=== PATIENT | female | born 1945 | race Caucasian/White ===

== ENCOUNTER 2017-04-22 03:55 | Inpatient (IN) | payer MEDICARE, MEDICAID ==
[~2017-04-22] VITALS: Ht 167.6 cm; Wt 65.0 kg
[2017-04-22] MEDS ORDERED: LORAZEPAM 2 MG INJ IV PRN (04:30)
[2017-04-22 04:49] LABS: BASOPHILS % 0.3 % (0.0-2.0); EOSINOPHILS # 0.2 10^3/ul (0.0-0.5); EOSINOPHILS % 1.5 % (0.0-7.0); HEMATOCRIT 42.7 % (37.0-47.0); HEMOGLOBIN 13.7 g/dl (12.0-16.0); LYMPHOCYTES # 1.8 10^3/ul (0.8-2.9); LYMPHOCYTES % 11.3 % (15.0-51.0); MEAN CORPUSCULAR HEMOGLOBIN 29.2 pg (29.0-33.0); MEAN CORPUSCULAR HGB CONC 32.1 g/dl (32.0-37.0); MEAN PLATELET VOLUME 10.6 fl (7.4-10.4); MONOCYTE # 0.8 10^3/ul (0.3-0.9); NEUTROPHIL # 12.5 10^3/ul (1.6-7.5); NEUTROPHILS % 81.1 % (39.0-77.0); PLATELET COUNT 332 10^3/UL (140-415); RED BLOOD COUNT 4.69 10^6/ul (4.20-5.40); RED CELL DISTRIBUTION WIDTH 14.8 % (11.5-14.5); WHITE BLOOD COUNT 15.5 10^3/ul (4.8-10.8)
[2017-04-22] MEDS ORDERED: SOD CHLORIDE 0.9% 1,000 ML IV ONE (05:00)
[2017-04-22 05:17] LABS: ALANINE AMINOTRANSFERASE 27 IU/L (13-69); ALBUMIN 2.9 g/dl (3.3-4.9); ALBUMIN/GLOBULIN RATIO 0.82; ALKALINE PHOSPHATASE 106 IU/L (42-121); ANION GAP 20 (8-16); ASPARTATE AMINO TRANSFERASE 27 IU/L (15-46); BILIRUBIN,INDIRECT 0.2 mg/dl (0-1.1); BILIRUBIN,TOTAL 0.2 mg/dl (0.2-1.3); BLOOD UREA NITROGEN 11 mg/dl (7-20); CALCIUM 8.8 mg/dl (8.4-10.2); CARBON DIOXIDE 16 mmol/L (21-31); CHLORIDE 101 mmol/L (97-110); CREATININE 0.63 mg/dl (0.44-1.00); GLUCOSE 272 mg/dl (70-220); POTASSIUM 3.6 mmol/L (3.5-5.1); SODIUM 133 mmol/L (135-144); TOTAL PROTEIN 6.4 g/dl (6.1-8.1)
--- NOTE | 2017-04-22 05:32 | RADRPT ---
PROCEDURE: CT BRAIN WITHOUT CONTRAST CLINICAL INDICATION: 72-year-old female with altered mental status. TECHNIQUE: The study was performed utilizing [employer] VCT 64-slice CT scanner. Direct axial sections were obtained from the foramen magnum to the vertex without the use of intravenous contrast material. Sagittal and coronal reformations were obtained. Sagittal and coronal reformations were obtained. One or more the following dose reduction techniques were utilized: automated exposure cont rol, adjustment of the mA and/or kV according to patient's size and/or use of iterative reconstructi on technique. DICOM images are available. The images were viewed on a PACS workstation. CTD/vol = 45.0 mGy; Total Exam DLP = 720.2 mGy-cm. COMPARISON: None. FINDINGS: There is moderate degree of diffuse cortical and central atrophy with compensatory ventricular enlar gement. There is no evidence for mass effect or midline shift. There are periventricular and deep white matter areas of decreased density consistent with microangiopathic ischemic changes. There is encephalomalacia superior to the calcarine fissure involving the cuneus of the occipital lobe exten ding to the parieto-occipital sulcus region consistent with a prior infarct.. There is no evidence f or acute intra or extra-axial blood. Calcifications are seen within the intracranial carotid arterie s bilaterally. The bony calvarium is intact. The paranasal sinuses are without significant soft tiss ue. No air-fluid levels are noted. There is marked soft tissue within the mastoid air cells bilatera lly extending into the middle ear more severe on the right side. IMPRESSION: 1. Moderate diffuse atrophy. 2. Microangiopathic ischemic changes. 3. Right superior occipital encephalomalacia most consistent with a prior infarct. 4. Vascular calcifications. 5. 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 .Gunnar Jain MD, MD Date Time Electronically viewed and signed by .Gunnar Jain MD, on 04/22/2017 05:32 .M/
--- NOTE | 2017-04-22 05:32 | ERD ---
ER Documentation Chief Complaint Chief Complaint HPI This is a 72-year-old female patient brought here from group home facility with complaints of possible seizure. Encouraged to days ago. Usually, patient has been more altered than normal. Normally patient is alert and oriented but is now lethargic. Patient is a 6 trach to vent patient is chronically. ROS All systems reviewed and are negative except as per history of present illness. Allergies Allergies: Coded Allergies: Penicillins (Verified Allergy, Unknown, 10/19/16) ampicillin (Verified Allergy, Unknown, 10/19/16) codeine (Verified Allergy, Unknown, 10/19/16) PMhx/Soc Medical and Surgical Hx: pt denies Surgical Hx History of Surgery: No Anesthesia Reaction: No Hx Neurological Disorder: Yes (encephalopathy) Hx Respiratory Disorders: Yes (respiratory failure with trach) Hx Cardiac Disorders: Yes (high cholesterol) Hx Psychiatric Problems: No Hx Miscellaneous Medical Probl: Yes (dm) Hx Alcohol Use: No Hx Substance Use: No Hx Tobacco Use: No Smoking Status: Never smoker Physical Exam Vitals Vital Signs Date Time Temp Pulse Resp B/P Pulse Ox O2 Delivery O2 Flow Rate FiO2 04/22/17 04:21 15 04/22/17 04:15 123 14 100 60 04/22/17 03:55 97.5 126 14 140/91 100 Physical Exam Const: [] Head: Atraumatic Eyes: Normal Conjunctiva ENT: Normal External Ears, Nose and Mouth. Neck: Full range of motion..~ No meningismus. Resp: Clear to auscultation bilaterally Cardio: Regular rate and rhythm, no murmurs Abd: Soft, non tender, non distended. Normal bowel sounds Skin: No petechiae or rashes Back: No midline or flank tenderness Ext: No cyanosis, or edema Neur: Awake and alert Psych: Normal Mood and Affect Result Diagram: 04/22/17 0430 Results 24 hrs Laboratory Tests Test 04/22/17 04:30 White Blood Count 15.510^3/ul Red Blood Count 4.6910^6/ul Hemoglobin 13.7g/dl Hematocrit 42.7% Mean Corpuscular Volume 91.0fl Mean Corpuscular Hemoglobin 29.2pg Mean Corpuscular Hemoglobin Concent 32.1g/dl Red Cell Distribution Width 14.8% Platelet Count 84128^3/UL Mean Platelet Volume 10.6fl Neutrophils % 81.1% Lymphocytes % 11.3% Monocytes % 5.0% Eosinophils % 1.5% Basophils % 0.3% Nucleated Red Blood Cells % 0.0/100WBC Neutrophils # 12.510^3/ul Lymphocytes # 1.810^3/ul Monocytes # 0.810^3/ul Eosinophils # 0.210^3/ul Basophils # 0.010^3/ul Nucleated Red Blood Cells # 0.010^3/ul Current Medications Medications (Trade) Dose Ordered Sig/Emmanuelle Route PRN Reason Start Time Stop Time Status Last Admin Dose Admin Lorazepam 0.5 mg 0.5 mg ONCE PRN IV SEIZURES 04/22/17 04:30 04/22/17 06:00 Sodium Chloride (NS) 1,000 ml @ 1,000 mls/hr Q1H ONCE IV 04/22/17 05:00 04/22/17 05:59 Procedures/MDM EKG: Rate/Rhythm: [Normal Sinus Rhythm] QRS, ST, T-waves: [No changes consistent w/ acute ischemia] Impression: [No evidence of ischemia or arrhythmia] Chest X-ray 1V Interpreted by me: Soft Tissue: No acute abnormalities Bones: No acute abnormalities Mediastinum/Cardiac Silhouette/Lungs: [No acute abnormalities] Medical decision-makin-year-old female with looks to be acute alteration in mental status. No evidence of brain bleed. Will be admitted to hospitalist for further evaluation and management. Departure Diagnosis: Primary Impression: Seizure disorder Condition: Stable MONICA RIDDLE Apr 22, 2017 05:32
[2017-04-22 05:34] LABS: ACETAMINOPHEN < 10.0 ug/ml (10.0-30.0); ETHANOL < 10.0 mg/dl; SALICYLATE < 1.0 mg/dl (5.0-30.0)
[2017-04-22 06:04] LABS: AADO2 Arterial 151.4 mmHg (7.0-24.0); Allen Test ACCEPTAB; Arterial Base Excess -8.7 mmol/L (-3.0-3); Arterial COHb 0.2 % (0.0-3.0); Arterial Fraction of Oxyhgb 98.8 % (93.0-99.0); Arterial HCO3 17.5 mmol/L (22.0-26.0); Arterial MetHb 0.1 % (0.0-1.5); Arterial Total Hemglobin 13.1 g/dl (12.0-18.0); MODE VENT - AC
[2017-04-22 06:48] LABS: ADD UMIC YES; UR ASCORBIC ACID 40 mg/dL (NEGATIVE); UR BILIRUBIN (Dip) NEGATIVE (NEGATIVE); UR BLOOD (Dip) NEGATIVE (NEGATIVE); UR CLARITY TURBID (CLEAR); UR COLOR AMBER (YELLOW); UR GLUCOSE (Dip) 3+ mg/dL (NEGATIVE); UR KETONES (Dip) TRACE mg/dL (NEGATIVE); UR LEUKOCYTE ESTERASE (Dip) 2+ Leu/ul (NEGATIVE); UR NITRITE (Dip) NEGATIVE (NEGATIVE); UR RBC 0 /HPF (0-5); UR SPECIFIC GRAVITY (Dip) 1.021 (1.003-1.030); UR TOTAL PROTEIN (Dip) 2+ mg/dl (NEGATIVE); UR UROBILINOGEN (Dip) 1+ mg/dL (NEGATIVE)
--- NOTE | 2017-04-22 07:06 | RADRPT ---
PROCEDURE: XR Chest. CLINICAL INDICATION: Seizure TECHNIQUE: AP Portable chest. COMPARISON: CHEST 11/07/2016; CHEST 10/29/2016 FINDINGS: Tracheostomy tube is midline. The patient is rotated. The cardiomediastinal silhouette is magnified. The aortic arch is calcified. There is interval devel opment of diffuse bilateral reticular nodular densities. The left hemidiaphragm is elevated with adj acent atelectasis. There is small left pleural effusion or thickening. No pneumothorax is seen. Th ere are degenerative changes in the spine. The bones are demineralized. IMPRESSION: Tracheostomy tube in place. Interval development of diffuse bilateral interstitial infiltrates and/or edema. Left basilar atelectasis and trace pleural effusion or thickening. Aortic atherosclerosis. Physician Yasmin Date Time Electronically viewed and signed by Ebony Vanegas Physician on 04/22/2017 07:05 /
[2017-04-22] MEDS ORDERED: ACID1TAB15 G-TUBE (07:16)
[2017-04-22] MEDS ORDERED: ATOR40TA68 GTB (07:28)
[2017-04-22] MEDS ORDERED: IPRA3AMP INHALATION (07:28)
[2017-04-22] MEDS ORDERED: ASPI-664 GTB (07:28)
[2017-04-22] MEDS ORDERED: CHLO473M4 MM (07:30)
[2017-04-22] MEDS ORDERED: DOCU-144 GTB (07:31)
[2017-04-22] MEDS ORDERED: BISA10SU75 PR (07:33)
[2017-04-22] MEDS ORDERED: FAMO20TA18 GTB (07:34)
[2017-04-22] MEDS ORDERED: FERR220S2 GTB (07:35)
[2017-04-22] MEDS ORDERED: NA P133E39 RC (07:36)
[2017-04-22] MEDS ORDERED: IBUP400T22 GTB (07:37)
[2017-04-22] MEDS ORDERED: MAGN400T27 GTB (07:38)
[2017-04-22] MEDS ORDERED: MAGN400O4 GTB (07:38)
[2017-04-22] MEDS ORDERED: ACET-2047 GTB ×3 (07:40→07:46)
[2017-04-22] MEDS ORDERED: ACET-141 GTB (07:44)
[2017-04-22] MEDS ORDERED: CRAN3875 GTB (07:47)
[2017-04-22] MEDS ORDERED: ASC500 GTB (07:50)
[2017-04-22 07:59] LABS: BARBITURATES Negative (NEGATIVE); BENZODIAZEPINES Negative (NEGATIVE); CANNABINOIDS Negative (NEGATIVE); COCAINE Negative (NEGATIVE); OPIATES Negative (NEGATIVE)
--- NOTE | 2017-04-22 10:24 | QN ---
Documentation Comment Observation Note: Time: 4 hours Family Hx: Negative for diabetes Evaluation: Multiple exams showed improving symptoms and no evidence of clinical decompensation. ILYA LARA MD Apr 22, 2017 10:24
--- NOTE | 2017-04-22 11:48 | HP ---
Date/Time of Note Date/Time of Note DATE: 04/22/17 TIME: 11:31 Assessment/Plan VTE Prophylaxis VTE Prophylaxis Intervention: SCD's Lines/Catheters Urinary Cath still in place: No Assessment/Plan Assessment/Plan 72 yo F 1. Sepsis 2/2 UTI + PNA 2. Acute on Xic resp failure: chronic vent dependent, s/p trach 3. prev CVA 4. ALOC 2/2 #1 5. Metabolic acidosis 6. Single seizure episode likely 2/2 #1 PLAN: admit ICU empiric broad spectrum abx ID and Pulm consults serial labs / corona cultures / supportive care possible neurology review if seizures persist / seizure precautions / EEG No feeds for now, continue meds however and all other care Further interventions per clinical care. HPI/ROS Admit Date/Time Admit Date/Time 04/22/17 Hx of Present Illness 72-year-old female who was brought in from a [facility] facility because of alteration in her mental status. Said to have had a seizure episode after which she became unresponsive. The patient is chronically ventilated via tracheostomy, but apparently from reports she is usually alert and oriented and follows commands. No hx of prior seizures. Per EMS patient was completely unresponsive when they arrived and had a blood sugar of 225. ABG in ER showed metabolic acidosis. She is also tachycardic. Per emergency room report, there was also some concern for possible seizure episode. CXR and urinalysis in ER is suggestive of infection. 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 ROS Subjective hx not possible: pt non-verbal, pt critical status, other ( unrsponsive) PMH/Family/Social Past Medical History * chronic resp failure via trach * Prev CVA Past Surgical History * Tracheostomy * PEG tube placement Family History Significant Family History: other (unknown) Social History Smoking Status: Never smoker Exam/Review of Systems Vital Signs Vitals VS - Last 72 Hours, by Label Date Time Temp Pulse Resp B/P Pulse Ox O2 Delivery O2 Flow Rate FiO2 04/22/17 09:05 108 14 100 40 04/22/17 08:30 101 14 120/87 100 Mechanical Ventilator 15.0 Trach Collar 04/22/17 07:25 110 14 100 40 04/22/17 06:30 97.0 112 14 119/90 100 Mechanical Ventilator Trach Collar 04/22/17 06:07 112 14 100 40 04/22/17 05:51 97.8 115 103/77 100 Mechanical Ventilator 15.0 04/22/17 04:21 15 04/22/17 04:18 50 04/22/17 04:15 123 14 100 60 04/22/17 03:55 97.5 126 14 140/91 100 Vital Signs Date Time Temp Pulse Resp B/P Pulse Ox O2 Delivery O2 Flow Rate FiO2 04/22/17 09:05 108 14 100 40 04/22/17 08:30 120/87 Mechanical Ventilator 15.0 Trach Collar 04/22/17 06:30 97.0 Exam Constitutional: other (obtunded), No alert, No non-verbal Psych: other (unable to assess) Head: atraumatic, normocephalic Eyes: PERRL ENMT: No mucosa pink and moist Neck: other (trach to vent) Respiratory: crackles/rales (coarse), diminished breath sounds, No labored breathing Cardiovascular: regular rate and rhythm, No murmurs/extra sounds Gastrointestinal: bowel sounds, other (PEG), soft Extremities: edema (mild) Neurological: other (obtunded and will only grimace to pain) Labs Result Diagram: 04/22/17 0430 04/22/17 0430 Procedures Procedures Laboratory Tests Test 04/22/17 04:12 04/22/17 04:30 04/22/17 04:33 04/22/17 05:44 Blood Gas Specimen Source Blood arterial Arterial Blood Date Drawn 04/22/2017 5:50:40 AM Arterial Blood pH (Temp corrected) 7.272 Arterial Blood pCO2 (Temp correct) 38.9mmhg Arterial Blood pO2 (Temp corrected) 161.3mmHG Arterial Blood HCO3 17.5mmol/L Arterial Blood Base Excess -8.7mmol/L Arterial Blood Oxygen Saturation 99.1mmHG Kaveh Test ACCEPTAB Arterial Blood Gas Puncture Site Right Radial Arterial Blood Carboxyhemoglobin 0.2% Arterial Blood Methemoglobin 0.1% Blood Gas A-a O2 Differential 151.4mmHg Oxyhemoglobin Percent 98.8% Total Hemoglobin 13.1g/dl Blood Gas Temperature 37.0C Blood Gas Respiration Rate 14.0 Blood Gas Actual Respiration Rate 14 Blood Gas Modality VENT - AC FiO2 50.0% Blood Gas Tidal Volume 500.0mL Blood Gas Low PEEP Setting 5.0cmH2O Blood Gas Inspiratory Pressure 20.0 Blood Gas Critical Value Read Back MICHAEL ARAYA Blood Gas Notified Whom AA Blood Gas Notified Time 04/22/2017 6:04:23 AM White Blood Count 15.510^3/ul Red Blood Count 4.6910^6/ul Hemoglobin 13.7g/dl Hematocrit 42.7% Mean Corpuscular Volume 91.0fl Mean Corpuscular Hemoglobin 29.2pg Mean Corpuscular Hemoglobin Concent 32.1g/dl Red Cell Distribution Width 14.8% Platelet Count 83887^3/UL Mean Platelet Volume 10.6fl Neutrophils % 81.1% Lymphocytes % 11.3% Monocytes % 5.0% Eosinophils % 1.5% Basophils % 0.3% Nucleated Red Blood Cells % 0.0/100WBC Neutrophils # 12.510^3/ul Lymphocytes # 1.810^3/ul Monocytes # 0.810^3/ul Eosinophils # 0.210^3/ul Basophils # 0.010^3/ul Nucleated Red Blood Cells # 0.010^3/ul Sodium Level 133mmol/L Potassium Level 3.6mmol/L Chloride Level 101mmol/L Carbon Dioxide Level 16mmol/L Anion Gap 20 Blood Urea Nitrogen 11mg/dl Creatinine 0.63mg/dl Glucose Level 272mg/dl Calcium Level 8.8mg/dl Total Bilirubin 0.2mg/dl Direct Bilirubin 0.00mg/dl Indirect Bilirubin 0.2mg/dl Aspartate Amino Transf (AST/SGOT) 27IU/L Alanine Aminotransferase (ALT/SGPT) 27IU/L Alkaline Phosphatase 106IU/L Total Protein 6.4g/dl Albumin 2.9g/dl Globulin 3.50g/dl Albumin/Globulin Ratio 0.82 Salicylates Level < 1.0mg/dl Acetaminophen Level < 10.0ug/ml Ethyl Alcohol Level < 10.0mg/dl Troponin I 0.068ng/ml Urine Color LARISA Urine Clarity TURBID Urine pH 5.0 Urine Specific [place] 1.021 Urine Ketones TRACEmg/dL Urine Nitrite NEGATIVEmg/dL Urine Bilirubin NEGATIVEmg/dL Urine Urobilinogen 1+mg/dL Urine Leukocyte Esterase 2+Norma/ul Urine Microscopic RBC 0/HPF Urine Microscopic WBC 0/HPF Urine Hemoglobin NEGATIVEmg/dL Urine Glucose 3+mg/dL Urine Total Protein 2+mg/dl Urine Opiates Screen Negative Urine Barbiturates Negative Urine Amphetamines Screen Negative Urine Benzodiazepines Screen Negative Urine Cocaine Screen Negative Urine Cannabinoids Negative Current Medications Medications (Trade) Dose Ordered Sig/Emmanuelle Route PRN Reason Start Time Stop Time Status Last Admin Dose Admin Lorazepam 0.5 mg 0.5 mg ONCE PRN IV SEIZURES 04/22/17 04:30 04/22/17 06:00 DC Sodium Chloride (NS) 1,000 ml @ 1,000 mls/hr Q1H ONCE IV 04/22/17 05:00 04/22/17 05:59 DC 04/22/17 05:49 1,000 MLS/HR PROCEDURE: CT BRAIN WITHOUT CONTRAST CLINICAL INDICATION: 72-year-old female with altered mental status. TECHNIQUE: The study was performed utilizing [employer]T 64-slice CT scanner. Direct axial sections were obtained from the foramen magnum to the vertex without the use of intravenous contrast material. Sagittal and coronal reformations were obtained. Sagittal and coronal reformations were obtained. One or more the following dose reduction techniques were utilized: automated exposure control, adjustment of the mA and/or kV according to patient's size and /or use of iterative reconstruction technique. DICOM images are available. The images were viewed on a PACS workstation. CTD/vol = 45.0 mGy; Total Exam DLP = 720.2 mGy-cm. COMPARISON: None. FINDINGS: There is moderate degree of diffuse cortical and central atrophy with compensatory ventricular enlargement. There is no evidence for mass effect or midline shift. There are periventricular and deep white matter areas of decreased density consistent with microangiopathic ischemic changes. There is encephalomalacia superior to the calcarine fissure involving the cuneus of the occipital lobe extending to the parieto-occipital sulcus region consistent with a prior infarct.. There is no evidence for acute intra or extra-axial blood. Calcifications are seen within the intracranial carotid arteries bilaterally. The bony calvarium is intact. The paranasal sinuses are without significant soft tissue. No air-fluid levels are noted. There is marked soft tissue within the mastoid air cells bilaterally extending into the middle ear more severe on the right side. IMPRESSION: 1. Moderate diffuse atrophy. 2. Microangiopathic ischemic changes. 3. Right superior occipital encephalomalacia most consistent with a prior infarct. 4. Vascular calcifications. 5. 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 .Gunnar Jain MD, MD Date Time Electronically viewed and signed by .Gunnar Jain MD, on 04/22/2017 05:32 .M/ CC: MONICA RIDDLE PROCEDURE: XR Chest. CLINICAL INDICATION: Seizure TECHNIQUE: AP Portable chest. COMPARISON: CHEST 11/07/2016; CHEST 10/29/2016 FINDINGS: Tracheostomy tube is midline. The patient is rotated. The cardiomediastinal silhouette is magnified. The aortic arch is calcified. There is interval development of diffuse bilateral reticular nodular densities. The left hemidiaphragm is elevated with adjacent atelectasis. There is small left pleural effusion or thickening. No pneumothorax is seen. There are degenerative changes in the spine. The bones are demineralized. IMPRESSION: Tracheostomy tube in place. Interval development of diffuse bilateral interstitial infiltrates and/or edema. Left basilar atelectasis and trace pleural effusion or thickening. Aortic atherosclerosis. Ebony Vanegas, Physician Date Time Electronically viewed and signed by Ebony Vanegas, Physician on 04/22/2017 07: 05 CS/ CC: MONICA RIDDLE BOLATITO M. Apr 22, 2017 11:42
[2017-04-22] MEDS ORDERED: VANCOMYCIN IV PER PHARMACY XX SCH (12:00)
[2017-04-22] MEDS ORDERED: VANCOMYCIN 1 GM in SOD CHLORIDE 0.9% 250 ML IVPB ONE (12:00)
[2017-04-22] MEDS ORDERED: LEVETIRACETAM 1000 MG (PMX) 100 ML IVPB ONE ×2 (12:30→13:30)
--- NOTE | 2017-04-22 12:54 | RADRPT ---
PROCEDURE: Ultrasound of the bilateral lower extremity venous system. CLINICAL INDICATION: Bilateral leg pain and swelling, deep venous thrombosis TECHNIQUE: Jasso scale with and without compression, color doppler, spectral doppler of the venous system of the bilateral lower extremities was performed. Venous augmentation maneuvers were utilized . COMPARISON: No prior studies are available for comparison. FINDINGS: Right: Common femoral vein: Patent. Femoral vein: Patent. Popliteal vein: Patent. Calf veins: Patent. No soft tissue abnormalities are identified. Left: Common femoral vein: Patent. Femoral vein: Patent. Popliteal vein: Patent. Calf veins: Patent. No soft tissue abnormalities are identified. IMPRESSION: No evidence of a deep vein thrombosis within the bilateral lower extremities. RPTAT: AADD .Sherman Souza MD, MD Date Time Electronically viewed and signed by .Sherman Souza MD, on 04/22/2017 12:54 .B/
[2017-04-22] MEDS ORDERED: AZTREONAM 1 GM/NS (PMX) 50 ML IVPB ONE (13:00)
--- NOTE | 2017-04-22 13:05 | CONS ---
DATE OF ADMISSION: 04/22/2017 DATE OF CONSULTATION: 04/22/2017 TYPE OF CONSULTATION: Infectious Disease. REASON FOR CONSULTATION: Antibiotic management. HISTORY OF PRESENT ILLNESS: Sandi Rothman is a 72-year-old female who was brought in from half-way facility with alteration of levels of consciousness. She had a seizure and became unrespons fran. She has ventilator-dependent respiratory failure but is usually alert and responsive. No hist ory of prior seizures. She has a history of MRSA in the past. She has a G-tube in place as well an d a history of previous CVA. On admission, her white count was 15.5, H and H of 13.7 and 42.7, plat elet count 332,000. BUN and creatinine 11/0.63, glucose random 272. PAST MEDICAL HISTORY: Operations as outlined. FAMILY HISTORY: Noncontributory. SOCIAL HISTORY: She does not smoke, drink or abuse drugs. ALLERGIES: NONE TO PENICILLIN, SULFA OR FOODS. MEDICATIONS: Per chart. REVIEW OF SYSTEMS: As per HPI. PHYSICAL EXAMINATION: GENERAL: The patient is an elderly appearing female who is obtunded on a respirator. She has a tra ch and a PEG. SKIN: Without generalized rash. HEENT: Within normal limits. NECK: Tracheostomy in place. Neck is supple. LYMPH NODES: None palpable. CHEST: Decreased breath sounds at the bases. HEART: Without murmur or gallop. ABDOMEN: Soft, nontender, without organosplenomegaly or masses. EXTREMITIES: Without cyanosis, clubbing, or edema. RECTAL AND GENITAL: Deferred. NEUROLOGIC: She has weakness bilaterally. IMPRESSION AND PLAN: The patient comes in now with leukocytosis. She has development of diffuse bi lateral interstitial infiltrates and/or edema. Left basilar atelectasis. She was started on vancom ycin and Levaquin. Cultures are pending including blood, urine, C. diff, and respiratory cultures. I will dictate my findings to the hospitalist. Dictated By: MARGIE AMBRIZ MD, JD/MICHAEL Conf#: [id number] DID#: [id number]
[2017-04-22] MEDS: LEVOFLOXACIN 750MG/D5W (PMX) 150 ML IVPB SCH (13:15)
[2017-04-22 13:58] LABS: CK-MB 9.48 ng/ml (0.0-2.4)
[2017-04-22 14:28] LABS: TROPONIN-I 0.994 ng/ml (0.00-0.12)
[2017-04-22] MEDS ORDERED: ASPIRIN 81 MG TAB PO ONE (14:30)
--- NOTE | 2017-04-22 17:12 | CONS ---
DATE OF ADMISSION: 04/22/2017 DATE OF CONSULTATION: 04/22/2017 PULMONARY CRITICAL CARE CONSULTATION TIME: 12:15 p.m. REFERRING PHYSICIAN: Gregoria Babb MD REASON FOR REFERRAL: For evaluation of chronic respiratory failure and sepsis. HISTORY OF PRESENT ILLNESS: Ms. Matta is a 72-year-old white female who was transferred over t o ER from longterm with episode of seizure which apparently is new in onset. The patient was un responsive initially; however, after resuscitation, the patient became more responsive, and by the t khoi I saw the patient in the ER, the patient was completely awake and alert and was doing fairly wel l on invasive mechanical ventilation. History was obtained from medical records. PAST MEDICAL HISTORY: 1. Chronic respiratory failure which is ventilator dependent. 2. Status post tracheostomy and G-tube placement. 3. No prior history of seizure activity. 4. History of cerebrovascular accident. MEDICATIONS: Patient currently on intravenous Levaquin, 750 mg was given x1. Vancomycin was given 1.25 gm x1, Lovenox 40 mg a day. Normal saline also was given 1000 mL x1 IV. ALLERGIES: 1. PENICILLIN. 2. CODEINE. SOCIAL HISTORY: No history of any smoking. FAMILY HISTORY: Noncontributory. OCCUPATIONAL HISTORY: Noncontributory. REVIEW OF SYSTEMS: A limited review of systems could be obtained. Patient denies any headache, vis ual changes, chest pain, shortness of breath, abdominal pain, nausea, vomiting, fever, chills. PHYSICAL EXAMINATION: GENERAL: Elderly woman on ventilator via tracheostomy, currently in no distress, awake and alert. VITAL SIGNS: Temperature is 97 degrees Fahrenheit, pulse 100 per minute, blood pressure is 120/84, O2 saturation 100%, respiratory rate is 14 per minute. Current ventilator settings are AC of 14, ti brenna volume 500, PEEP of 5, 40% FIO2. HEENT: Supple neck, no JVD, no lymphadenopathy, midline trachea, no thyromegaly. Patient is edentu lous. Tracheostomy in place. Insertion site is clean. Pupils are small bilaterally. CHEST: Diminished breath sounds bilaterally. HEART: S1, S2 audible. No murmurs, regular rhythm. ABDOMEN: Soft, nondistended, no organomegaly. G-tube in place. Bowel sounds audible. EXTREMITIES: No edema. NEUROLOGIC: Patient is awake and follows simple commands, moves all 4 extremities. LABORATORY DATA: Today, ABG done on current ventilator settings AC of 14, tidal volume 500, PEEP of 5, 50% FIO2, pH 7.27, CO2 of 38, pO2 of 161. Sodium 133, potassium 3.6, chloride 101, bicarb 16, B UN 11, creatinine 0.6, glucose 272. AST of 27, AST of 27. White count 15.5, hemoglobin 13.7, plate let count of 332. IMAGING: Chest x-ray was reviewed, which is showing bilateral infiltrative changes. CT brain also was done which is showing diffuse atrophy with microangiopathic changes. No acute changes identifie d. ASSESSMENT AND RECOMMENDATIONS: 1. The patient admitted with seizures, new in onset, etiology is unclear. 2. History of chronic respiratory failure. 3. Bilateral pneumonia, possibly some element of aspiration. RECOMMENDATIONS: Add Azactam 1 gm IV q.8 hours. Continue current other antibiotics and supportive measures. Administer Keppra 1 gm with a followup of 500 mg q.12 hours. Add Protonix for GI prophyl axis. Dictated By: CRISELDA EDWARD MD AQ/NTS Conf#: [id number] DID#: [id number] CC: GREGORIA BABB MD;*EndCC*
[2017-04-22 18:42] LABS: CK-MB 11.3 ng/ml (0.0-2.4)
[2017-04-22 18:43] LABS: TROPONIN-I 1.21 ng/ml (0.00-0.12)
[2017-04-22 21:10] LABS: CALCIUM 8.5 mg/dl (8.4-10.2); CREATININE 0.61 mg/dl (0.44-1.00); POTASSIUM 3.9 mmol/L (3.5-5.1)
[2017-04-23] VITALS (26 sets, daily range): BP systolic 88–119; BP diastolic 58–86; PULSE 93–108; RESP 14–30; TEMP 99.9; Ht 167.6 cm; Wt 65.0 kg
[2017-04-23 06:19] LABS: BASOPHILS % 0.1 % (0.0-2.0); HEMATOCRIT 42.8 % (37.0-47.0); HEMOGLOBIN 14.4 g/dl (12.0-16.0); LYMPHOCYTES # 0.9 10^3/ul (0.8-2.9); LYMPHOCYTES % 4.4 % (15.0-51.0); MEAN CORPUSCULAR HEMOGLOBIN 29.3 pg (29.0-33.0); MEAN CORPUSCULAR HGB CONC 33.6 g/dl (32.0-37.0); MEAN CORPUSCULAR VOLUME 87.2 fl (82.0-101.0); MEAN PLATELET VOLUME 11.2 fl (7.4-10.4); MONOCYTE # 1.2 10^3/ul (0.3-0.9); MONOCYTES % 5.8 % (0.0-11.0); NEUTROPHIL # 18.2 10^3/ul (1.6-7.5); PLATELET COUNT 302 10^3/UL (140-415); RED BLOOD COUNT 4.91 10^6/ul (4.20-5.40); RED CELL DISTRIBUTION WIDTH 14.9 % (11.5-14.5); WHITE BLOOD COUNT 20.5 10^3/ul (4.8-10.8)
[2017-04-23 06:55] LABS: ALBUMIN 3.3 g/dl (3.3-4.9); BILIRUBIN,INDIRECT 0.2 mg/dl (0-1.1); BILIRUBIN,TOTAL 0.2 mg/dl (0.2-1.3); CALCIUM 9.1 mg/dl (8.4-10.2); CREATININE 0.7 mg/dl (0.44-1.00); POTASSIUM 3.6 mmol/L (3.5-5.1); TOTAL PROTEIN 7.5 g/dl (6.1-8.1)
[2017-04-23] MEDS ORDERED: ENOXAPARIN 40 MG/0.4 ML SYG SC SCH (09:00)
--- NOTE | 2017-04-23 09:15 | PN ---
Date/Time of Note Date/Time of Note DATE: 04/23/17 TIME: 09:15 Assessment/Plan VTE Prophylaxis VTE Prophylaxis Intervention: SCD's Lines/Catheters IV Catheter Type (from Nrs): Saline Lock Urinary Cath still in place: Yes Reason Cath still needed: urinary retention Assessment/Plan Assessment/Plan 1. Sepsis secondary to UTI and pneumonia - Patient remains afebrile but WBC trending up - corona cultures pending - Currently on IV Azactam, Vancomycin, and Levaquin - ID on board and recommendations appreciated. - Pulmonology on board and recommendations appreciated - Continue to monitor 2. Elevated troponins - Possibly secondary to sepsis - Will put on full dose Lovenox and consult cardiology. 3. Acute on chronic resp failure- vent dependent, s/p trach - Continue current management - Pulm on board 4. Seizure episode - Currently on Keppra - EEG ordered - no further episodes of seizures since admission 5. Metabolic acidosis - repeat ABG pending - bicarb normalized 6. hyponatremia- resolved - continue monitoring 7. Diet - will resume feeding in next 24 hours 8. Disposition - Continue monitoring in ICU >35 minutes of critical care time was spent with patient. Subjective 24 Hr Interval Summary Free Text/Dictation Patient resting comfortably in bed in no acute distress. opens eyes to voice and touch but not following commands. Does track with eyes. No acute overnight events. No further seizure episodes. Exam/Review of Systems Vital Signs Vitals Vital Signs Date Time Temp Pulse Resp B/P Pulse Ox O2 Delivery O2 Flow Rate FiO2 04/23/17 08:00 100.6 93 15 105/69 98 04/23/17 06:30 Mechanical Ventilator 04/23/17 06:30 40 04/22/17 19:43 Intake and Output 04/22/17 04/22/17 04/23/17 15:00 23:00 07:00 Intake Total 150 ml Balance 150 ml Exam Constitutional: alert, non-verbal Head: atraumatic, normocephalic Eyes: EOMI, PERRL ENMT: other (dry mucous membrane ) Respiratory: diminished breath sounds, No crackles/rales, No labored breathing, No wheezing Cardiovascular: regular rate and rhythm, No edema, No murmurs/extra sounds, No systolic murmur Gastrointestinal: bowel sounds, non-tender, soft, No distended, No rebound or guarding Musculoskeletal: other, No swelling (clubbing right foot) Extremities: normal pulses Skin: No diaphoresis, No ecchymosis Lymph: nl lymph nodes Results Result Diagram: 04/23/1728 04/23/17 0528 Results 24 hrs Laboratory Tests Test 04/22/17 12:55 04/22/17 13:05 04/22/17 14:50 04/22/17 17:47 Hemoglobin A1c 5.8 Creatine Kinase 130 134 Creatine Kinase Index 7.3 8.4 Creatinine Kinase MB (Mass) 9.48 H 11.30 H Troponin I 0.994 *H 1.210 *H Magnesium Level 1.5 L Sodium Level 133 L Potassium Level 3.9 Chloride Level 103 Carbon Dioxide Level 16 L Anion Gap 18 H Blood Urea Nitrogen 17 Creatinine 0.61 Glucose Level 202 Calcium Level 8.5 Test 04/23/17 04:52 04/23/17 05:28 Bedside Glucose 190 White Blood Count 20.5 #H Red Blood Count 4.91 Hemoglobin 14.4 Hematocrit 42.8 Mean Corpuscular Volume 87.2 Mean Corpuscular Hemoglobin 29.3 Mean Corpuscular Hemoglobin Concent 33.6 Red Cell Distribution Width 14.9 H Platelet Count 302 Mean Platelet Volume 11.2 H Neutrophils % 89.0 H Lymphocytes % 4.4 L Monocytes % 5.8 Eosinophils % 0.0 Basophils % 0.1 Nucleated Red Blood Cells % 0.0 Neutrophils # 18.2 H Lymphocytes # 0.9 Monocytes # 1.2 H Eosinophils # 0.0 Basophils # 0.0 Nucleated Red Blood Cells # 0.0 Sodium Level 138 Potassium Level 3.6 Chloride Level 102 Carbon Dioxide Level 21 Anion Gap 19 H Blood Urea Nitrogen 19 Creatinine 0.70 Glucose Level 189 Calcium Level 9.1 Total Bilirubin 0.2 Direct Bilirubin 0.00 Indirect Bilirubin 0.2 Aspartate Amino Transf (AST/SGOT) 36 Alanine Aminotransferase (ALT/SGPT) 21 Alkaline Phosphatase 112 Total Protein 7.5 # Albumin 3.3 Medications Medications Current Medications Levofloxacin/ Dextrose (Levaquin 750 Mg/ D5W 150 ml (Pmx)) 150 ml @ 100 mls/hr Q24H IVPB Last administered on 04/22/17t 13:15; Admin Dose 100 MLS/HR; Start 04/22/17 at 12:00 Enoxaparin Sodium 40 mg 40 mg DAILY SC ; Start 04/23/17 at 09:00 Vancomycin HCl/ Sodium Chloride (Vancocin/NS) 250 ml @ 83.333 mls/ hr Q24H IVPB ; Start 04/23/17 at 12:00 YUDI CARBAJAL MD Apr 23, 2017 09:15
--- NOTE | 2017-04-23 09:56 | CONS ---
Date/Time of Note Date/Time of Note DATE: 04/23/17 TIME: 09:54 Assessment/Plan Assessment/Plan Additional Assessment/Plan Ventilator setting; AC of 14, tidal volume 450, PEEP of 5, 40% FiO2. Assessment and recommendations; 1. Patient with history of chronic respiratory failure admitted with bilateral pneumonia. Currently on appropriate antibiotic regimen. 2. New onset seizures without any further recurrence after being admitted to the hospital. Patient given 1 g of Keppra yesterday. Continue current treatment. Continue Azactam. Continue Keppra at 500 mg every 12 hours. Obtain follow-up chest x-ray in 24 hours. Obtain follow-up ABG as well. Consultation Date/Type/Reason Admit Date/Time Apr 22, 2017 at 05:39 Initial Consult Date Type of Consultation: Pulmonary/critical care 24 HR Interval Summary Free Text/Dictation Patient's condition is stable. Patient has remained hemodynamically stable. No overt seizure activity noted. General exam; elderly woman, on ventilator via tracheostomy, awake, currently in no distress. Exam/Review of Systems Vital Signs Vitals Vital Signs Date Time Temp Pulse Resp B/P Pulse Ox O2 Delivery O2 Flow Rate FiO2 04/23/17 08:00 100.6 93 15 105/69 98 04/23/17 08:00 40 04/23/17 06:30 Mechanical Ventilator 04/22/17 19:43 Intake and Output 04/22/17 04/22/17 04/23/17 15:00 23:00 07:00 Intake Total 150 ml Balance 150 ml Exam HEENT exam; supple neck, no JVD. No lymphadenopathy. Midline trachea. No thyromegaly. Tracheostomy in place. Insertion site is clean. Pupils are small bilaterally. Chest exam; diminished but clear breath sounds. S1-S2 audible, no murmurs. Regular rhythm. Abdomen exam; soft, nondistended. No organomegaly. G-tube in place. Bowel sounds audible. Extremity exam; no edema. MANAGER FLORAL exam; patient awake and follows simple commands and moves all 4 extremities. Results Result Diagram: 04/23/17 0528 04/23/17 0528 Results 24 hrs Laboratory Tests Test 04/22/17 12:55 04/22/17 13:05 04/22/17 14:50 04/22/17 17:47 Hemoglobin A1c 5.8 Creatine Kinase 130 134 Creatine Kinase Index 7.3 8.4 Creatinine Kinase MB (Mass) 9.48 H 11.30 H Troponin I 0.994 *H 1.210 *H Magnesium Level 1.5 L Sodium Level 133 L Potassium Level 3.9 Chloride Level 103 Carbon Dioxide Level 16 L Anion Gap 18 H Blood Urea Nitrogen 17 Creatinine 0.61 Glucose Level 202 Calcium Level 8.5 Test 04/23/17 04:52 04/23/17 05:28 Bedside Glucose 190 White Blood Count 20.5 #H Red Blood Count 4.91 Hemoglobin 14.4 Hematocrit 42.8 Mean Corpuscular Volume 87.2 Mean Corpuscular Hemoglobin 29.3 Mean Corpuscular Hemoglobin Concent 33.6 Red Cell Distribution Width 14.9 H Platelet Count 302 Mean Platelet Volume 11.2 H Neutrophils % 89.0 H Lymphocytes % 4.4 L Monocytes % 5.8 Eosinophils % 0.0 Basophils % 0.1 Nucleated Red Blood Cells % 0.0 Neutrophils # 18.2 H Lymphocytes # 0.9 Monocytes # 1.2 H Eosinophils # 0.0 Basophils # 0.0 Nucleated Red Blood Cells # 0.0 Sodium Level 138 Potassium Level 3.6 Chloride Level 102 Carbon Dioxide Level 21 Anion Gap 19 H Blood Urea Nitrogen 19 Creatinine 0.70 Glucose Level 189 Calcium Level 9.1 Total Bilirubin 0.2 Direct Bilirubin 0.00 Indirect Bilirubin 0.2 Aspartate Amino Transf (AST/SGOT) 36 Alanine Aminotransferase (ALT/SGPT) 21 Alkaline Phosphatase 112 Total Protein 7.5 # Albumin 3.3 Medications Medications Current Medications Levofloxacin/ Dextrose (Levaquin 750 Mg/ D5W 150 ml (Pmx)) 150 ml @ 100 mls/hr Q24H IVPB Last administered on 04/22/17t 13:15; Admin Dose 100 MLS/HR; Start 04/22/17 at 12:00 Enoxaparin Sodium 40 mg 40 mg DAILY SC ; Start 04/23/17 at 09:00 Vancomycin HCl/ Sodium Chloride (Vancocin/NS) 250 ml @ 83.333 mls/ hr Q24H IVPB ; Start 04/23/17 at 12:00 CRISELDA EDWARD Apr 23, 2017 09:56
[2017-04-23] MEDS: LEVETIRACETAM 500 MG (PMX) 100 ML IVPB SCH ×2 (10:00→20:50)
[2017-04-23] MEDS: AZTREONAM 1 GM/NS (PMX) 50 ML IVPB SCH ×2 (10:00→14:19)
[2017-04-23 10:50] LABS: AADO2 Arterial 157.1 mmHg (7.0-24.0); Allen Test ACCEPTAB; Arterial Base Excess -1.8 mmol/L (-3.0-3); Arterial COHb 0.5 % (0.0-3.0); Arterial Fraction of Oxyhgb 97.2 % (93.0-99.0); Arterial HCO3 20.9 mmol/L (22.0-26.0); Arterial MetHb 0.1 % (0.0-1.5); Arterial Total Hemglobin 14.8 g/dl (12.0-18.0); MODE VENT - AC
[2017-04-23] MEDS: LEVOFLOXACIN 750MG/D5W (PMX) 150 ML IVPB SCH (12:00)
[2017-04-23 13:10] LABS: CK-MB 7.09 ng/ml (0.0-2.4)
[2017-04-23 13:14] LABS: TROPONIN-I 2.26 ng/ml (0.00-0.12)
[2017-04-23] MEDS: CEFEPIME 1GM/50 ML (PMX) 50 ML IVPB SCH ×2 (14:30→21:14)
--- NOTE | 2017-04-23 14:43 | PN ---
DATE: 04/23/2017 SUBJECTIVE: Patient is lying comfortably in bed. She opens eyes and seems to understand what is go ing on. She is spiking low-grade fevers. She is in no distress, opens eyes. VITAL SIGNS: T-max 100.6, heart rate 108, respirations 17, blood pressure 119/86, saturation 100% o n vent. LABORATORY DATA: WBC 20.5, platelets 302, neutrophils 89. BUN 19, creatinine 0.70. Troponin 2.260 . MICROBIOLOGY: Blood cultures remain negative. Urinalysis was grossly positive for leukocyte estera se. DIAGNOSTICS: Chest x-ray from yesterday revealed diffuse bilateral interstitial infiltrates. CT of the brain showed no acute abnormalities, bilateral otomastoid disease, more severe on the right guille e. Extremity ultrasound revealed no evidence for DVT. INDWELLINGS: The patient has trach, PEG, Johnson, peripheral IV. ANTIMICROBIALS: She is on: 1. Vancomycin. 2. Aztreonam. 3. Levaquin. ALLERGIES: SHE IS ALLERGIC TO PENICILLIN. PHYSICAL EXAMINATION: GENERAL: This is a chronically ill-appearing, elderly woman who is in no distress. HEENT: Head atraumatic, normocephalic. Sclerae anicteric. Buccal mucosa dry. NECK: Supple. Tracheostomy present. CHEST: Rise symmetrical. Breath sounds diminished to bases. HEART: S1, S2. ABDOMEN: Soft, bowel tones present. EXTREMITIES: Without cyanosis. ASSESSMENT: 1. Severe sepsis. 2. Healthcare-associated pneumonia. 3. Urinary tract infection as per urinalysis. 4. Bilateral otomastoiditis per CT. 5. Dysphagia. 6. New onset seizures. PLAN: We are going to change aztreonam and levofloxacin to cefepime. Continue vancomycin. Send ur ine and sputum cultures. Follow recommendations of specialists. Dictated By: JERONIMO CHINO PACKER OPERATOR [employer] for MARGIE AMBRIZ MD NI/NTS Conf#: [id number] DID#: [id number]
[2017-04-23] MEDS: VANCOMYCIN 1.25 GM in SOD CHLORIDE 0.9% 250 ML IVPB SCH (14:54)
--- NOTE | 2017-04-23 17:49 | CONS ---
Date/Time of Note Date/Time of Note DATE: 04/23/17 TIME: 17:44 Assessment/Plan Assessment/Plan Chief Complaint/Hosp Course 1) Increasing troponins, NSTEMI versus demand ischemia 2) Sepsis with hypotension 3) UTI 4) PNA 5) VDRF 6) LBBB with marked sinustachycardia contributing to elevated troponins 7) Seizure do 8) h/o CVA Problems: Additional Assessment/Plan 1) would benefit from beta henrik though will hold of given marginal BP 2) echo given previous h/o preserved LV function without regional wall motion abnormalities 4) ASA 5) FLP 6) will consider statin 7) ABX 8) will observe. will eventually consider risk stratification if indicated Consultation Date/Type/Reason Admit Date/Time Apr 22, 2017 at 05:39 Initial Consult Date Type of Consultation: cv Reason for Consultation [place] 24 HR Interval Summary Free Text/Dictation admitted for PNA, respiratory failure, sepsis with hypotension found to have elevated troponins. is non verbal on vent. opens eyes, appears calm, no apparent distress Subjective hx not possible: pt non-verbal, pt critical status Exam/Review of Systems Vital Signs Vitals Vital Signs Date Time Temp Pulse Resp B/P Pulse Ox O2 Delivery O2 Flow Rate FiO2 04/23/17 16:00 102 04/23/17 16:00 98.6 19 108/68 100 Mechanical Ventilator 04/23/17 13:05 40 04/22/17 19:43 Intake and Output 04/22/17 04/22/17 04/23/17 15:00 23:00 07:00 Intake Total 150 ml Balance 150 ml Exam Constitutional: frail, non-verbal Head: atraumatic, normocephalic ENMT: other (ventilated) Neck: jvd Respiratory: diminished breath sounds Cardiovascular: regular rate and rhythm Gastrointestinal: soft Musculoskeletal: muscle weakness, range of motion Results Result Diagram: 04/23/17 0528 04/23/17 0528 Results 24 hrs Laboratory Tests Test 04/22/17 17:47 04/23/17 04:52 04/23/17 05:28 04/23/17 09:52 Sodium Level 133 L 138 Potassium Level 3.9 3.6 Chloride Level 103 102 Carbon Dioxide Level 16 L 21 Anion Gap 18 H 19 H Blood Urea Nitrogen 17 19 Creatinine 0.61 0.70 Glucose Level 202 189 Calcium Level 8.5 9.1 Creatine Kinase 134 Creatine Kinase Index 8.4 Creatinine Kinase MB (Mass) 11.30 H Troponin I 1.210 *H Bedside Glucose 190 White Blood Count 20.5 #H Red Blood Count 4.91 Hemoglobin 14.4 Hematocrit 42.8 Mean Corpuscular Volume 87.2 Mean Corpuscular Hemoglobin 29.3 Mean Corpuscular Hemoglobin Concent 33.6 Red Cell Distribution Width 14.9 H Platelet Count 302 Mean Platelet Volume 11.2 H Neutrophils % 89.0 H Lymphocytes % 4.4 L Monocytes % 5.8 Eosinophils % 0.0 Basophils % 0.1 Nucleated Red Blood Cells % 0.0 Neutrophils # 18.2 H Lymphocytes # 0.9 Monocytes # 1.2 H Eosinophils # 0.0 Basophils # 0.0 Nucleated Red Blood Cells # 0.0 Total Bilirubin 0.2 Direct Bilirubin 0.00 Indirect Bilirubin 0.2 Aspartate Amino Transf (AST/SGOT) 36 Alanine Aminotransferase (ALT/SGPT) 21 Alkaline Phosphatase 112 Total Protein 7.5 # Albumin 3.3 Blood Gas Specimen Source Blood arterial Arterial Blood Date Drawn 04/23/2017 10:30:38 AM Arterial Blood pH (Temp corrected) 7.455 H Arterial Blood pCO2 (Temp correct) 30.4 L Arterial Blood pO2 (Temp corrected) 93.1 Arterial Blood HCO3 20.9 L Arterial Blood Base Excess -1.8 Arterial Blood Oxygen Saturation 97.8 Kaveh Test ACCEPTAB Arterial Blood Gas Puncture Site Right Radial Arterial Blood Carboxyhemoglobin 0.5 Arterial Blood Methemoglobin 0.1 Blood Gas A-a O2 Differential 157.1 H Oxyhemoglobin Percent 97.2 Total Hemoglobin 14.8 Blood Gas Temperature 37.0 Blood Gas Respiration Rate 14.0 Blood Gas Actual Respiration Rate 19 Blood Gas Modality VENT - AC FiO2 40.0 Blood Gas Tidal Volume 500.0 Blood Gas Low PEEP Setting 5.0 Blood Gas Notified Whom JLD Blood Gas Notified Time 04/23/2017 10:50:37 AM Test 04/23/17 11:44 Creatine Kinase 80 Creatine Kinase Index 8.9 Creatinine Kinase MB (Mass) 7.09 H Troponin I 2.260 *H Medications Medications Current Medications Vancomycin HCl 1.25 gm/Sodium Chloride 250 ml @ 83.333 mls/ hr Q24H IVPB Last administered on 04/23/17t 14:54; Admin Dose 83.333 MLS/HR; Start 04/23/17 at 12:00 Levetiracetam (Keppra 500 Mg/ 100ml (Pmx)) 100 ml @ 400 mls/hr Q12 IVPB Last administered on 04/23/17 10:00; Admin Dose 400 MLS/HR; Start 04/23/17 at 10: 00 Enoxaparin Sodium 65 mg 65 mg Q12 SC ; Start 04/23/17 at 21:00 Cefepime HCl (Maxipime 1gm/50 ml (Pmx)) 50 ml @ 100 mls/hr Q12 IVPB Last administered on 04/23/17 14:30; Admin Dose 100 MLS/HR; Start 04/23/17 at 13: 30 Procedures Procedures EKG: SR, LBBALJIT ALBERTO MD Apr 23, 2017 17:49
[2017-04-23] MEDS ORDERED: ASPIRIN 81 MG TAB NGT SCH (18:00)
[2017-04-23 19:18] LABS: CK-MB 5.85 ng/ml (0.0-2.4)
[2017-04-23 19:33] LABS: TROPONIN-I 2.68 ng/ml (0.00-0.12)
[2017-04-23 20:52] LABS: HEMATOCRIT 37.8 % (37.0-47.0); HEMOGLOBIN 12.7 g/dl (12.0-16.0)
[2017-04-23] MEDS ORDERED: ENOXAPARIN 80 MG/0.8 ML SYG SC SCH (21:00)
[2017-04-23] MEDS: DEXTROSE 5%-0.45% NACL 1,000 ML IV SCH (21:13)
[2017-04-23] MEDS: PANTOPRAZOLE IV 80 MG in SOD CHLORIDE 0.9% 100 ML IV SCH (22:27)
[2017-04-24] VITALS (34 sets, daily range): BP systolic 67–120; BP diastolic 44–69; PULSE 67–113; RESP 13–49
[2017-04-24 01:39] LABS: CK-MB 4.66 ng/ml (0.0-2.4)
[2017-04-24 01:40] LABS: TROPONIN-I 2.53 ng/ml (0.00-0.12)
[2017-04-24 05:29] LABS: ABNORMAL IP MESSAGE 1; BASOPHILS % 0.1 % (0.0-2.0); HEMATOCRIT 31.8 % (37.0-47.0); HEMOGLOBIN 10.4 g/dl (12.0-16.0); LYMPHOCYTES # 1.9 10^3/ul (0.8-2.9); LYMPHOCYTES % 11.8 % (15.0-51.0); MEAN CORPUSCULAR HGB CONC 32.7 g/dl (32.0-37.0); MEAN CORPUSCULAR VOLUME 88.6 fl (82.0-101.0); MEAN PLATELET VOLUME 11.2 fl (7.4-10.4); MONOCYTE # 1.7 10^3/ul (0.3-0.9); MONOCYTES % 10.6 % (0.0-11.0); NEUTROPHIL # 12.3 10^3/ul (1.6-7.5); NEUTROPHILS % 77.1 % (39.0-77.0); PLATELET COUNT 299 10^3/UL (140-415); RED BLOOD COUNT 3.59 10^6/ul (4.20-5.40); RED CELL DISTRIBUTION WIDTH 14.9 % (11.5-14.5)
[2017-04-24 05:45] LABS: CHOL/HDL RATIO 2.9 RATIO
[2017-04-24 05:54] LABS: CALCIUM 7.9 mg/dl (8.4-10.2); CREATININE 0.75 mg/dl (0.44-1.00); POTASSIUM 4.4 mmol/L (3.5-5.1)
[2017-04-24 06:09] LABS: POSITIVE DIFF @See below
[2017-04-24] MEDS: PANTOPRAZOLE IV 80 MG in SOD CHLORIDE 0.9% 100 ML IV SCH ×2 (06:46→17:00)
--- NOTE | 2017-04-24 07:03 | CONS ---
Date/Time of Note Date/Time of Note DATE: 04/24/17 TIME: 07:01 Assessment/Plan Assessment/Plan Additional Assessment/Plan From a palliative care standpoint I will contact next of kin schedule follow-up family conference and establish goals of care Consultation Date/Type/Reason Admit Date/Time Apr 22, 2017 at 05:39 Type of Consultation: Palliative care Hx of Present Illness We will review patient's chart and speak to Dr. mehta to follow if she approves. 72-year-old female group home facility resident transferred for mental status changes and possible seizure disorder. Patient is a non-historian she is currently in the intensive care unit all this information from medical records. Patient is a full code patient is also an elderly female who appears to have multiple chronicity's. Review of systems is complete, unable to obtain what is listed below is incorrect. Subjective hx not possible: other (Appears emaciated and dehydrated) Cardiovascular: no complaints Gastrointestinal: no complaints Social History Smoking Status: Never smoker Exam/Review of Systems Vital Signs Vitals Vital Signs Date Time Temp Pulse Resp B/P Pulse Ox O2 Delivery O2 Flow Rate FiO2 04/24/17 05:09 110 16 98 30 04/24/17 04:00 99.5 89/55 Mechanical Ventilator 04/22/17 19:43 Intake and Output 04/23/17 04/23/17 04/24/17 15:00 23:00 07:00 Intake Total 150 ml 550.000 ml 450 ml Output Total 265 ml 440 ml 180 ml Balance -115 ml 110.000 ml 270 ml Exam Constitutional: frail Head: atraumatic, normocephalic Respiratory: clear to auscultation, normal air movement Cardiovascular: nl pulses, regular rate and rhythm Neurological: other (Does not follow any simple commands does not track does not move extremities spontaneously) Skin: other (Bilateral 3+ edema) Results Result Diagram: 04/24/17 0503 04/24/17 0503 Results 24 hrs Laboratory Tests Test 04/23/17 09:52 04/23/17 11:44 04/23/17 18:10 04/23/17 20:45 Blood Gas Specimen Source Blood arterial Arterial Blood Date Drawn 04/23/2017 10:30:38 AM Arterial Blood pH (Temp corrected) 7.455 H Arterial Blood pCO2 (Temp correct) 30.4 L Arterial Blood pO2 (Temp corrected) 93.1 Arterial Blood HCO3 20.9 L Arterial Blood Base Excess -1.8 Arterial Blood Oxygen Saturation 97.8 Kaveh Test ACCEPTAB Arterial Blood Gas Puncture Site Right Radial Arterial Blood Carboxyhemoglobin 0.5 Arterial Blood Methemoglobin 0.1 Blood Gas A-a O2 Differential 157.1 H Oxyhemoglobin Percent 97.2 Total Hemoglobin 14.8 Blood Gas Temperature 37.0 Blood Gas Respiration Rate 14.0 Blood Gas Actual Respiration Rate 19 Blood Gas Modality VENT - AC FiO2 40.0 Blood Gas Tidal Volume 500.0 Blood Gas Low PEEP Setting 5.0 Blood Gas Notified Whom JLD Blood Gas Notified Time 04/23/2017 10:50:37 AM Creatine Kinase 80 75 Creatine Kinase Index 8.9 7.8 Creatinine Kinase MB (Mass) 7.09 H 5.85 H Troponin I 2.260 *H 2.680 *H Hemoglobin 12.7 Hematocrit 37.8 Test 04/24/17 00:29 04/24/17 05:03 Creatine Kinase 59 Creatine Kinase Index 7.9 Creatinine Kinase MB (Mass) 4.66 H Troponin I 2.530 *H White Blood Count 16.0 #H Red Blood Count 3.59 #L Hemoglobin 10.4 L Hematocrit 31.8 L Mean Corpuscular Volume 88.6 Mean Corpuscular Hemoglobin 29.0 Mean Corpuscular Hemoglobin Concent 32.7 Red Cell Distribution Width 14.9 H Platelet Count 299 Mean Platelet Volume 11.2 H Neutrophils % 77.1 H Lymphocytes % 11.8 L Monocytes % 10.6 Eosinophils % 0.0 Basophils % 0.1 Nucleated Red Blood Cells % 0.0 Neutrophils # 12.3 H Lymphocytes # 1.9 Monocytes # 1.7 H Eosinophils # 0.0 Basophils # 0.0 Nucleated Red Blood Cells # 0.0 Sodium Level 135 Potassium Level 4.4 Chloride Level 107 Carbon Dioxide Level 21 Anion Gap 11 # Blood Urea Nitrogen 42 #H Creatinine 0.75 Glucose Level 226 H Calcium Level 7.9 L Triglycerides Level 92 Cholesterol Level 96 L LDL Cholesterol, Calculated 45 HDL Cholesterol 33 Cholesterol/HDL Ratio 2.9 Medications Medications Current Medications Vancomycin HCl 1.25 gm/Sodium Chloride 250 ml @ 83.333 mls/ hr Q24H IVPB Last administered on 04/23/17t 14:54; Admin Dose 83.333 MLS/HR; Start 04/23/17 at 12:00 Levetiracetam (Keppra 500 Mg/ 100ml (Pmx)) 100 ml @ 400 mls/hr Q12 IVPB Last administered on 04/23/17 20:50; Admin Dose 400 MLS/HR; Start 04/23/17 at 10: 00 Enoxaparin Sodium 65 mg 65 mg Q12 SC ; Start 04/23/17 at 21:00; Status Future Hold Cefepime HCl (Maxipime 1gm/50 ml (Pmx)) 50 ml @ 100 mls/hr Q12 IVPB Last administered on 04/23/17 21:14; Admin Dose 100 MLS/HR; Start 04/23/17 at 13: 30 Aspirin 81 mg 81 mg DAILY NGT Last administered on 04/23/17 18:09; Admin Dose 81 MG; Start 04/23/17 at 18:00; Status Future Hold Pantoprazole 80 mg/Sodium Chloride 100 ml @ 10 mls/hr Q10H IV Last administered on 04/24/17 06:46; Admin Dose 10 MLS/HR; Start 04/23/17 at 21:00 Dextrose/Sodium Chloride (D5-1/2ns) 1,000 ml @ 75 mls/hr [id number] IV Last administered on 04/23/17 21:13; Admin Dose 75 MLS/HR; Start 04/23/17 at 21:00 VIRGINIA VALENTIN Apr 24, 2017 07:03
--- NOTE | 2017-04-24 07:10 | CONS ---
Date/Time of Note Date/Time of Note DATE: 04/24/17 TIME: 07:09 Assessment/Plan Assessment/Plan Chief Complaint/Hosp Course We will review patient's chart and speak to Dr. mehta to follow if she approves. 72-year-old female residential facility resident transferred for mental status changes and possible seizure disorder. Patient is a non-historian she is currently in the intensive care unit all this information from medical records. Patient is a full code patient is also an elderly female who appears to have multiple chronicity's. Problems: Consultation Date/Type/Reason Admit Date/Time Apr 22, 2017 at 05:39 Initial Consult Date Type of Consultation: Palliative care 24 HR Interval Summary Free Text/Dictation Contacted patient's [id number] at [phone] other phone numbers listed in the chart are incorrect. He is aware the fact that she was admitted to the intensive care unit. We were disconnected and I will call him back. Exam/Review of Systems Vital Signs Vitals Vital Signs Date Time Temp Pulse Resp B/P Pulse Ox O2 Delivery O2 Flow Rate FiO2 04/24/17 05:09 110 16 98 30 04/24/17 04:00 99.5 89/55 Mechanical Ventilator 04/22/17 19:43 Intake and Output 04/23/17 04/23/17 04/24/17 15:00 23:00 07:00 Intake Total 150 ml 550.000 ml 450 ml Output Total 265 ml 440 ml 180 ml Balance -115 ml 110.000 ml 270 ml Results Result Diagram: 04/24/17 0503 04/24/17 0503 Results 24 hrs Laboratory Tests Test 04/23/17 09:52 04/23/17 11:44 04/23/17 18:10 04/23/17 20:45 Blood Gas Specimen Source Blood arterial Arterial Blood Date Drawn 04/23/2017 10:30:38 AM Arterial Blood pH (Temp corrected) 7.455 H Arterial Blood pCO2 (Temp correct) 30.4 L Arterial Blood pO2 (Temp corrected) 93.1 Arterial Blood HCO3 20.9 L Arterial Blood Base Excess -1.8 Arterial Blood Oxygen Saturation 97.8 Kaveh Test ACCEPTAB Arterial Blood Gas Puncture Site Right Radial Arterial Blood Carboxyhemoglobin 0.5 Arterial Blood Methemoglobin 0.1 Blood Gas A-a O2 Differential 157.1 H Oxyhemoglobin Percent 97.2 Total Hemoglobin 14.8 Blood Gas Temperature 37.0 Blood Gas Respiration Rate 14.0 Blood Gas Actual Respiration Rate 19 Blood Gas Modality VENT - AC FiO2 40.0 Blood Gas Tidal Volume 500.0 Blood Gas Low PEEP Setting 5.0 Blood Gas Notified Whom JLD Blood Gas Notified Time 04/23/2017 10:50:37 AM Creatine Kinase 80 75 Creatine Kinase Index 8.9 7.8 Creatinine Kinase MB (Mass) 7.09 H 5.85 H Troponin I 2.260 *H 2.680 *H Hemoglobin 12.7 Hematocrit 37.8 Test 04/24/17 00:29 04/24/17 05:03 Creatine Kinase 59 Creatine Kinase Index 7.9 Creatinine Kinase MB (Mass) 4.66 H Troponin I 2.530 *H White Blood Count 16.0 #H Red Blood Count 3.59 #L Hemoglobin 10.4 L Hematocrit 31.8 L Mean Corpuscular Volume 88.6 Mean Corpuscular Hemoglobin 29.0 Mean Corpuscular Hemoglobin Concent 32.7 Red Cell Distribution Width 14.9 H Platelet Count 299 Mean Platelet Volume 11.2 H Neutrophils % 77.1 H Lymphocytes % 11.8 L Monocytes % 10.6 Eosinophils % 0.0 Basophils % 0.1 Nucleated Red Blood Cells % 0.0 Neutrophils # 12.3 H Lymphocytes # 1.9 Monocytes # 1.7 H Eosinophils # 0.0 Basophils # 0.0 Nucleated Red Blood Cells # 0.0 Sodium Level 135 Potassium Level 4.4 Chloride Level 107 Carbon Dioxide Level 21 Anion Gap 11 # Blood Urea Nitrogen 42 #H Creatinine 0.75 Glucose Level 226 H Calcium Level 7.9 L Triglycerides Level 92 Cholesterol Level 96 L LDL Cholesterol, Calculated 45 HDL Cholesterol 33 Cholesterol/HDL Ratio 2.9 Medications Medications Current Medications Vancomycin HCl 1.25 gm/Sodium Chloride 250 ml @ 83.333 mls/ hr Q24H IVPB Last administered on 04/23/17 14:54; Admin Dose 83.333 MLS/HR; Start 04/23/17 at 12:00 Levetiracetam (Keppra 500 Mg/ 100ml (Pmx)) 100 ml @ 400 mls/hr Q12 IVPB Last administered on 04/23/17 20:50; Admin Dose 400 MLS/HR; Start 04/23/17 at 10: 00 Enoxaparin Sodium 65 mg 65 mg Q12 SC ; Start 04/23/17 at 21:00; Status Future Hold Cefepime HCl (Maxipime 1gm/50 ml (Pmx)) 50 ml @ 100 mls/hr Q12 IVPB Last administered on 04/23/17 21:14; Admin Dose 100 MLS/HR; Start 04/23/17 at 13: 30 Aspirin 81 mg 81 mg DAILY NGT Last administered on 04/23/17 18:09; Admin Dose 81 MG; Start 04/23/17 at 18:00; Status Future Hold Pantoprazole 80 mg/Sodium Chloride 100 ml @ 10 mls/hr Q10H IV Last administered on 04/24/17 06:46; Admin Dose 10 MLS/HR; Start 04/23/17 at 21:00 Dextrose/Sodium Chloride (D5-1/2ns) 1,000 ml @ 75 mls/hr [id number] IV Last administered on 04/23/17 21:13; Admin Dose 75 MLS/HR; Start 04/23/17 at 21:00 VIRGINIA VALENTIN Apr 24, 2017 07:10
--- NOTE | 2017-04-24 08:27 | CONS ---
Date/Time of Note Date/Time of Note DATE: 04/24/17 TIME: 08:25 Assessment/Plan Assessment/Plan Chief Complaint/Hosp Course We will review patient's chart and speak to Dr. mehta to follow if she approves. 72-year-old female intermediate facility resident transferred for mental status changes and possible seizure disorder. Patient is a non-historian she is currently in the intensive care unit all this information from medical records. Patient is a full code patient is also an elderly female who appears to have multiple chronicity's. Problems: Consultation Date/Type/Reason Admit Date/Time Apr 22, 2017 at 05:39 Type of Consultation: Palliative care 24 HR Interval Summary Free Text/Dictation No family members on the [facility] she has no first-degree family members and I spoken to her [id number]. He has been a decision maker for her the last time he seen her is approximately 18 years ago. He agrees to change CODE STATUS to DO NOT RESUSCITATE and I have told him based on her clinical status she probably will not be hospitalized for prolonged period of time in acute care setting. He is also in agreement with hospice care when she returns a intermediate facility. Suggestion is to discharge patient back to intermediate unit with hospice care. Exam/Review of Systems Vital Signs Vitals Vital Signs Date Time Temp Pulse Resp B/P Pulse Ox O2 Delivery O2 Flow Rate FiO2 04/24/17 06:00 110 16 91/60 98 Mechanical Ventilator 04/24/17 05:09 30 04/24/17 04:00 99.5 04/22/17 19:43 Intake and Output 04/23/17 04/23/17 04/24/17 15:00 23:00 07:00 Intake Total 150 ml 550.000 ml 525 ml Output Total 265 ml 440 ml 180 ml Balance -115 ml 110.000 ml 345 ml Results Result Diagram: 04/24/17 0503 04/24/17 0503 Results 24 hrs Laboratory Tests Test 04/23/17 09:52 04/23/17 11:44 04/23/17 18:10 04/23/17 20:45 Blood Gas Specimen Source Blood arterial Arterial Blood Date Drawn 04/23/2017 10:30:38 AM Arterial Blood pH (Temp corrected) 7.455 H Arterial Blood pCO2 (Temp correct) 30.4 L Arterial Blood pO2 (Temp corrected) 93.1 Arterial Blood HCO3 20.9 L Arterial Blood Base Excess -1.8 Arterial Blood Oxygen Saturation 97.8 Kaveh Test ACCEPTAB Arterial Blood Gas Puncture Site Right Radial Arterial Blood Carboxyhemoglobin 0.5 Arterial Blood Methemoglobin 0.1 Blood Gas A-a O2 Differential 157.1 H Oxyhemoglobin Percent 97.2 Total Hemoglobin 14.8 Blood Gas Temperature 37.0 Blood Gas Respiration Rate 14.0 Blood Gas Actual Respiration Rate 19 Blood Gas Modality VENT - AC FiO2 40.0 Blood Gas Tidal Volume 500.0 Blood Gas Low PEEP Setting 5.0 Blood Gas Notified Whom JLD Blood Gas Notified Time 04/23/2017 10:50:37 AM Creatine Kinase 80 75 Creatine Kinase Index 8.9 7.8 Creatinine Kinase MB (Mass) 7.09 H 5.85 H Troponin I 2.260 *H 2.680 *H Hemoglobin 12.7 Hematocrit 37.8 Test 04/24/17 00:29 04/24/17 05:03 Creatine Kinase 59 Creatine Kinase Index 7.9 Creatinine Kinase MB (Mass) 4.66 H Troponin I 2.530 *H White Blood Count 16.0 #H Red Blood Count 3.59 #L Hemoglobin 10.4 L Hematocrit 31.8 L Mean Corpuscular Volume 88.6 Mean Corpuscular Hemoglobin 29.0 Mean Corpuscular Hemoglobin Concent 32.7 Red Cell Distribution Width 14.9 H Platelet Count 299 Mean Platelet Volume 11.2 H Neutrophils % 77.1 H Lymphocytes % 11.8 L Monocytes % 10.6 Eosinophils % 0.0 Basophils % 0.1 Nucleated Red Blood Cells % 0.0 Neutrophils # 12.3 H Lymphocytes # 1.9 Monocytes # 1.7 H Eosinophils # 0.0 Basophils # 0.0 Nucleated Red Blood Cells # 0.0 Sodium Level 135 Potassium Level 4.4 Chloride Level 107 Carbon Dioxide Level 21 Anion Gap 11 # Blood Urea Nitrogen 42 #H Creatinine 0.75 Glucose Level 226 H Calcium Level 7.9 L Triglycerides Level 92 Cholesterol Level 96 L LDL Cholesterol, Calculated 45 HDL Cholesterol 33 Cholesterol/HDL Ratio 2.9 Medications Medications Current Medications Vancomycin HCl 1.25 gm/Sodium Chloride 250 ml @ 83.333 mls/ hr Q24H IVPB Last administered on 04/23/17t 14:54; Admin Dose 83.333 MLS/HR; Start 04/23/17 at 12:00 Levetiracetam (Keppra 500 Mg/ 100ml (Pmx)) 100 ml @ 400 mls/hr Q12 IVPB Last administered on 04/23/17 20:50; Admin Dose 400 MLS/HR; Start 04/23/17 at 10: 00 Enoxaparin Sodium 65 mg 65 mg Q12 SC ; Start 04/23/17 at 21:00; Status Future Hold Cefepime HCl (Maxipime 1gm/50 ml (Pmx)) 50 ml @ 100 mls/hr Q12 IVPB Last administered on 04/23/17 21:14; Admin Dose 100 MLS/HR; Start 04/23/17 at 13: 30 Aspirin 81 mg 81 mg DAILY NGT Last administered on 04/23/17 18:09; Admin Dose 81 MG; Start 04/23/17 at 18:00; Status Future Hold Pantoprazole 80 mg/Sodium Chloride 100 ml @ 10 mls/hr Q10H IV Last administered on 04/24/17 06:46; Admin Dose 10 MLS/HR; Start 04/23/17 at 21:00 Dextrose/Sodium Chloride (D5-1/2ns) 1,000 ml @ 75 mls/hr [id number] IV Last administered on 04/23/17 21:13; Admin Dose 75 MLS/HR; Start 04/23/17 at 21:00 VIRGINIA VALENTIN Apr 24, 2017 08:27
[2017-04-24] MEDS: LEVETIRACETAM 500 MG (PMX) 100 ML IVPB SCH ×2 (09:22→22:09)
--- NOTE | 2017-04-24 09:27 | PN ---
Date/Time of Note Date/Time of Note DATE: 04/24/17 TIME: 09:07 Assessment/Plan VTE Prophylaxis VTE Prophylaxis Intervention: contraindicated, SCD's VTE Contraindication Reason: bleeding Lines/Catheters IV Catheter Type (from Nrs): Peripheral IV Urinary Cath still in place: Yes Reason Cath still needed: urinary retention Assessment/Plan Chief Complaint/Hosp Course Assessment/Plan: 72-year-old female sent from the [facility] with: 1. Sepsis secondary to UTI and pneumonia - Patient remains afebrile, WBC slightly lower today. Lima cultures final results pending - For now continue IV Azactam, Vancomycin, and Levaquin - ID on board and recommendations appreciated. - Pulmonology on board and recommendations appreciated - Continue to monitor 2. Elevated troponins - NSTEMI versus demand ischemia vs sepsis. Bleeding occurred through G-tube yesterday evening, and Lovenox held last night -Conservative treatment for now, follow cardiology recommendations -Continue to monitor heart rate 3. Acute on chronic resp failure- vent dependent, s/p trach - Continue current management - Pulm on [id number] their recommendations 4. Seizure episode -occurred in ER, currently on Keppra. -Follow-up results of EEG 5. Metabolic acidosis -resolved now -Monitor 6. hyponatremia- resolved - continue monitoring 7. GI bleed: Hemoglobin slightly lower today, otherwise low normal range. -Obviously as mentioned above hold Lovenox, will get GI consult as well. 8. Disposition - Continue monitoring in ICU, palliative team met with family as well, patient is now DNR, appreciate their input 45 minutes of critical care time was spent with patient today. Problems: Subjective 24 Hr Interval Summary Free Text/Dictation Patient had some bleeding from the G-tube yesterday, Lovenox was held. Still on IV fluids, blood pressure is stable presently. Still on antibiotics. Patient is now DNR. Exam/Review of Systems Vital Signs Vitals Vital Signs Date Time Temp Pulse Resp B/P Pulse Ox O2 Delivery O2 Flow Rate FiO2 04/24/17 08:26 106 18 98 30 04/24/17 06:00 91/60 Mechanical Ventilator 04/24/17 04:00 99.5 04/22/17 19:43 Intake and Output 04/23/17 04/23/17 04/24/17 15:00 23:00 07:00 Intake Total 150 ml 550.000 ml 525 ml Output Total 265 ml 440 ml 180 ml Balance -115 ml 110.000 ml 345 ml Exam Constitutional: opens eyes, non-verbal Head: atraumatic, normocephalic Eyes: EOMI, PERRL ENMT: less dry mucous membranes Respiratory: less diminished breath sounds, Cardiovascular: regular rate and rhythm, No edema, No murmurs/extra sounds, No systolic murmur Gastrointestinal: bowel sounds, non-tender, soft, No distended, No rebound or guarding Musculoskeletal: clubbing right foot Extremities: normal pulses Skin: No diaphoresis, No ecchymosis Results Result Diagram: 04/24/17 0503 04/24/17 0503 Results 24 hrs Laboratory Tests Test 04/23/17 09:52 04/23/17 11:44 04/23/17 18:10 04/23/17 20:45 Blood Gas Specimen Source Blood arterial Arterial Blood Date Drawn 04/23/2017 10:30:38 AM Arterial Blood pH (Temp corrected) 7.455 H Arterial Blood pCO2 (Temp correct) 30.4 L Arterial Blood pO2 (Temp corrected) 93.1 Arterial Blood HCO3 20.9 L Arterial Blood Base Excess -1.8 Arterial Blood Oxygen Saturation 97.8 Kaveh Test ACCEPTAB Arterial Blood Gas Puncture Site Right Radial Arterial Blood Carboxyhemoglobin 0.5 Arterial Blood Methemoglobin 0.1 Blood Gas A-a O2 Differential 157.1 H Oxyhemoglobin Percent 97.2 Total Hemoglobin 14.8 Blood Gas Temperature 37.0 Blood Gas Respiration Rate 14.0 Blood Gas Actual Respiration Rate 19 Blood Gas Modality VENT - AC FiO2 40.0 Blood Gas Tidal Volume 500.0 Blood Gas Low PEEP Setting 5.0 Blood Gas Notified Whom JLD Blood Gas Notified Time 04/23/2017 10:50:37 AM Creatine Kinase 80 75 Creatine Kinase Index 8.9 7.8 Creatinine Kinase MB (Mass) 7.09 H 5.85 H Troponin I 2.260 *H 2.680 *H Hemoglobin 12.7 Hematocrit 37.8 Test 04/24/17 00:29 04/24/17 05:03 Creatine Kinase 59 Creatine Kinase Index 7.9 Creatinine Kinase MB (Mass) 4.66 H Troponin I 2.530 *H White Blood Count 16.0 #H Red Blood Count 3.59 #L Hemoglobin 10.4 L Hematocrit 31.8 L Mean Corpuscular Volume 88.6 Mean Corpuscular Hemoglobin 29.0 Mean Corpuscular Hemoglobin Concent 32.7 Red Cell Distribution Width 14.9 H Platelet Count 299 Mean Platelet Volume 11.2 H Neutrophils % 77.1 H Lymphocytes % 11.8 L Monocytes % 10.6 Eosinophils % 0.0 Basophils % 0.1 Nucleated Red Blood Cells % 0.0 Neutrophils # 12.3 H Lymphocytes # 1.9 Monocytes # 1.7 H Eosinophils # 0.0 Basophils # 0.0 Nucleated Red Blood Cells # 0.0 Sodium Level 135 Potassium Level 4.4 Chloride Level 107 Carbon Dioxide Level 21 Anion Gap 11 # Blood Urea Nitrogen 42 #H Creatinine 0.75 Glucose Level 226 H Calcium Level 7.9 L Triglycerides Level 92 Cholesterol Level 96 L LDL Cholesterol, Calculated 45 HDL Cholesterol 33 Cholesterol/HDL Ratio 2.9 Medications Medications Current Medications Vancomycin HCl 1.25 gm/Sodium Chloride 250 ml @ 83.333 mls/ hr Q24H IVPB Last administered on 04/23/17 14:54; Admin Dose 83.333 MLS/HR; Start 04/23/17 at 12:00 Levetiracetam (Keppra 500 Mg/ 100ml (Pmx)) 100 ml @ 400 mls/hr Q12 IVPB Last administered on 04/23/17 20:50; Admin Dose 400 MLS/HR; Start 04/23/17 at 10: 00 Enoxaparin Sodium 65 mg 65 mg Q12 SC ; Start 04/23/17 at 21:00; Status Future Hold Cefepime HCl (Maxipime 1gm/50 ml (Pmx)) 50 ml @ 100 mls/hr Q12 IVPB Last administered on 04/23/17 21:14; Admin Dose 100 MLS/HR; Start 04/23/17 at 13: 30 Aspirin 81 mg 81 mg DAILY NGT Last administered on 04/23/17 18:09; Admin Dose 81 MG; Start 04/23/17 at 18:00; Status Future Hold Pantoprazole 80 mg/Sodium Chloride 100 ml @ 10 mls/hr Q10H IV Last administered on 04/24/17 06:46; Admin Dose 10 MLS/HR; Start 04/23/17 at 21:00 Dextrose/Sodium Chloride (D5-1/2ns) 1,000 ml @ 75 mls/hr [id number] IV Last administered on 04/23/17t 21:13; Admin Dose 75 MLS/HR; Start 04/23/17 at 21:00 MARCO ROSAS Apr 24, 2017 09:17
[2017-04-24] MEDS ORDERED: FAMOTIDINE 20 MG INJ IV SCH (09:30)
--- NOTE | 2017-04-24 10:03 | CONS ---
Date/Time of Note Date/Time of Note DATE: 04/24/17 TIME: 09:59 Assessment/Plan Assessment/Plan Additional Assessment/Plan Ventilator setting; AC of 14, tidal volume 500, PEEP of 5, 30% FiO2. Assessment and recommendations; 1. Patient admitted with bilateral pneumonia leading to respiratory failure. 2. Dementia. 3. History of chronic respiratory failure which is ventilator dependent. 4. Anemia. Continue current supportive care. Patient can be transferred to the telemetry unit. Continue current antibiotics. Consultation Date/Type/Reason Admit Date/Time Apr 22, 2017 at 05:39 Type of Consultation: Pulmonary/critical care 24 HR Interval Summary Free Text/Dictation Patient's condition remains critical. Still requiring full invasive mechanical ventilation. General exam; elderly woman, awake, but unresponsive, on ventilator via tracheostomy. Currently in no distress. Exam/Review of Systems Vital Signs Vitals Vital Signs Date Time Temp Pulse Resp B/P Pulse Ox O2 Delivery O2 Flow Rate FiO2 04/24/17 08:26 106 18 98 30 04/24/17 06:00 91/60 Mechanical Ventilator 04/24/17 04:00 99.5 04/22/17 19:43 Intake and Output 04/23/17 04/23/17 04/24/17 15:00 23:00 07:00 Intake Total 150 ml 550.000 ml 525 ml Output Total 265 ml 440 ml 180 ml Balance -115 ml 110.000 ml 345 ml Exam HEENT exam; supple neck, positive JVD. No lymphadenopathy. Midline trachea. No thyromegaly. Tracheostomy in place. Patient is edentulous. Chest exam; diminished breath sounds bilaterally. S1-S2 audible, no murmurs. Regular rhythm. Abdomen exam; soft, nondistended. No organomegaly. Bowel sounds are audible. Extremity exam; no edema. BANQUET STEWARDESS exam; patient is awake but unresponsive. Results Result Diagram: 04/24/17 0503 04/24/17 0503 Results 24 hrs Laboratory Tests Test 04/23/17 11:44 04/23/17 18:10 04/23/17 20:45 04/24/17 00:29 Creatine Kinase 80 75 59 Creatine Kinase Index 8.9 7.8 7.9 Creatinine Kinase MB (Mass) 7.09 H 5.85 H 4.66 H Troponin I 2.260 *H 2.680 *H 2.530 *H Hemoglobin 12.7 Hematocrit 37.8 Test 04/24/17 05:03 White Blood Count 16.0 #H Red Blood Count 3.59 #L Hemoglobin 10.4 L Hematocrit 31.8 L Mean Corpuscular Volume 88.6 Mean Corpuscular Hemoglobin 29.0 Mean Corpuscular Hemoglobin Concent 32.7 Red Cell Distribution Width 14.9 H Platelet Count 299 Mean Platelet Volume 11.2 H Neutrophils % 77.1 H Lymphocytes % 11.8 L Monocytes % 10.6 Eosinophils % 0.0 Basophils % 0.1 Nucleated Red Blood Cells % 0.0 Neutrophils # 12.3 H Lymphocytes # 1.9 Monocytes # 1.7 H Eosinophils # 0.0 Basophils # 0.0 Nucleated Red Blood Cells # 0.0 Sodium Level 135 Potassium Level 4.4 Chloride Level 107 Carbon Dioxide Level 21 Anion Gap 11 # Blood Urea Nitrogen 42 #H Creatinine 0.75 Glucose Level 226 H Calcium Level 7.9 L Triglycerides Level 92 Cholesterol Level 96 L LDL Cholesterol, Calculated 45 HDL Cholesterol 33 Cholesterol/HDL Ratio 2.9 Medications Medications Current Medications Vancomycin HCl 1.25 gm/Sodium Chloride 250 ml @ 83.333 mls/ hr Q24H IVPB Last administered on 04/23/17 14:54; Admin Dose 83.333 MLS/HR; Start 04/23/17 at 12:00 Levetiracetam (Keppra 500 Mg/ 100ml (Pmx)) 100 ml @ 400 mls/hr Q12 IVPB Last administered on 04/24/17 09:22; Admin Dose 400 MLS/HR; Start 04/23/17 at 10: 00 Enoxaparin Sodium 65 mg 65 mg Q12 SC ; Start 04/23/17 at 21:00; Status Future Hold Cefepime HCl (Maxipime 1gm/50 ml (Pmx)) 50 ml @ 100 mls/hr Q12 IVPB Last administered on 04/23/17 21:14; Admin Dose 100 MLS/HR; Start 04/23/17 at 13: 30 Aspirin 81 mg 81 mg DAILY NGT Last administered on 04/23/17 18:09; Admin Dose 81 MG; Start 04/23/17 at 18:00; Status Future Hold Pantoprazole 80 mg/Sodium Chloride 100 ml @ 10 mls/hr Q10H IV Last administered on 04/24/17 06:46; Admin Dose 10 MLS/HR; Start 04/23/17 at 21:00 Dextrose/Sodium Chloride (D5-1/2ns) 1,000 ml @ 75 mls/hr [id number] IV Last administered on 04/23/17 21:13; Admin Dose 75 MLS/HR; Start 04/23/17 at 21:00 Famotidine (Pepcid Iv) 20 mg BID IV ; Start 04/24/17 at 09:30 CRISELDA EDWARD Apr 24, 2017 10:03
[2017-04-24] MEDS: CEFEPIME 1GM/50 ML (PMX) 50 ML IVPB SCH ×2 (10:12→22:09)
[2017-04-24] MEDS: DEXTROSE 5%-0.45% NACL 1,000 ML IV SCH (10:20)
--- NOTE | 2017-04-24 10:31 | SP ---
DATE OF PROCEDURE: 04/23/2017 PROCEDURE: Electroencephalogram DATE OF EE04/23/2017 INDICATION: A 72-year-old lady with altered level of consciousness, sepsis, previous stroke, metabo lic encephalopathy, single seizure episode, currently on Keppra among other medications. DESCRIPTION OF PROCEDURE: EEG was recorded digitally. [id number] and [id number] montages wer e recorded and reviewed. All impedances were measured and recorded. Cap electrodes were placed in accordance with international 10-20 system of electrode placement. FINDINGS: Symmetrically distributed background activity of low to medium amplitude, ranging in freq uency between 6-8 cycles per second was seen most of the recording, at times slightly slower, about 4-6 cycles per second. No definite response to photic stimulation. There is intermittent, not rhyt hmical sharp wave activity with triphasic morphology was seen, at times bisynchronous, and at times with some predominance to the right hemisphere. No signs of ongoing electrographic seizures. No la teralized slowing. IMPRESSION: Abnormal study secondary to background slowing in the presence of triphasic waves, all reflect presence of encephalopathy, likely toxic-metabolic in etiology. Please correlate clinically . Dictated By: CEASAR MORRIS/MICHAEL Conf#: [id number] DID#: [id number] CC: FRANKO CARRERA MD;*EndCC*
--- NOTE | 2017-04-24 11:20 | CONS ---
Date/Time of Note Date/Time of Note DATE: 04/24/17 TIME: 11:03 Assessment/Plan Assessment/Plan Chief Complaint/Hosp Course Summary Assessment and Plan: Assessment: Upper GI bleed R/o PUD vs other NSTEMI vs Demand ISchemia Left bundle branch block-sinus tachycardia UTI PNA Ventilator dependent respiratory failure Dysphagia with PEG Recent seizure History of CVA Plan: Maintain NPO status EGD today- If we are able to obtain CARDIAC CLEARANCE Continue PPI drip Monitor h/h transfuse as needed Endoscopy - risks/benefits/alternatives/indications of procedure and sedation/ anesthesia discussed with patients decision maker who understands and gives informed consent to proceed. PARQ held and questions were answered. Patient seen in collaboration with DR. Dove Problems: Consultation Date/Type/Reason Admit Date/Time Apr 22, 2017 at 05:39 Date of Consultation: Apr 24, 2017 Type of Consultation: GI Reason for Consultation New onset bleeding from g-tube Hx of Present Illness This is a 72-year-old female with past medical history of ventilator dependent respiratory failure, dysphagia needing G-tube, history of CVA. Who is brought into the ER from a custodial facility for altered mental status. She apparently had a seizure which then became unresponsive, there is no history of prior seizures. During hospitalization patient noted to have elevated troponin' s cardiology on the case and [facility] [place] versus demand ischemia, left bundle branch block with sinus tachycardia, likely contributing to the elevated troponin. GI has been consulted as patient began to bleed from G-tube last night hemoglobin on admission was 13.7 hemoglobin today is 10.4 platelets 299. She was on Lovenox and ASA, which both have been place on hold. G-tube is now to low intermittent suction, during the night nurse removed 200 mL of bright red blood from G-tube. With current presentation we will continue to monitor H/H, continue PPI drip, will plan for EGD today if we can obtain a cardiac clearance. Keep patient n.p.o., further recommendations with clinical course and results of EGD. Social History Smoking Status: Never smoker Exam/Review of Systems Vital Signs Vitals Vital Signs Date Time Temp Pulse Resp B/P Pulse Ox O2 Delivery O2 Flow Rate FiO2 04/24/17 08:26 106 18 98 30 04/24/17 06:00 91/60 Mechanical Ventilator 04/24/17 04:00 99.5 04/22/17 19:43 Intake and Output 04/23/17 04/23/17 04/24/17 15:00 23:00 07:00 Intake Total 150 ml 550.000 ml 525 ml Output Total 265 ml 440 ml 180 ml Balance -115 ml 110.000 ml 345 ml Exam PHYSICAL EXAMINATION: GENERAL: Chronically ill-appearing, nonverbal SKIN: No lesions, no stigmata chronic liver disease, LYMPHATIC: No palpable lymphadenopathy. HEAD: Normocephalic, atraumatic, no tenderness. EYES: Pupils equal reactive to light and accommodation, EARS/NOSE AND THROAT: Ears normal, nose normal, oropharynx normal. NECK: Supple, no masses, thyroid normal, CHEST: Inspection within normal limits. CARDIOVASCULAR: Sinus tachycardia RESPIRATORY: Trach in place GASTROINTESTINAL AND LIVER: Abdomen: Soft, non tenderness, non-distended, no hernias, no masses, PEG in place, normoactive bowel sounds. Rectal: Deferred. GENITOURINARY:Female genitalia within normal limits. EXTREMITIES: No cyanosis, clubbing or edema. Results Result Diagram: 04/24/17 0503 04/24/17 0503 Results 24 hrs Laboratory Tests Test 04/23/17 11:44 04/23/17 18:10 04/23/17 20:45 04/24/17 00:29 Creatine Kinase 80 75 59 Creatine Kinase Index 8.9 7.8 7.9 Creatinine Kinase MB (Mass) 7.09 H 5.85 H 4.66 H Troponin I 2.260 *H 2.680 *H 2.530 *H Hemoglobin 12.7 Hematocrit 37.8 Test 04/24/17 05:03 White Blood Count 16.0 #H Red Blood Count 3.59 #L Hemoglobin 10.4 L Hematocrit 31.8 L Mean Corpuscular Volume 88.6 Mean Corpuscular Hemoglobin 29.0 Mean Corpuscular Hemoglobin Concent 32.7 Red Cell Distribution Width 14.9 H Platelet Count 299 Mean Platelet Volume 11.2 H Neutrophils % 77.1 H Lymphocytes % 11.8 L Monocytes % 10.6 Eosinophils % 0.0 Basophils % 0.1 Nucleated Red Blood Cells % 0.0 Neutrophils # 12.3 H Lymphocytes # 1.9 Monocytes # 1.7 H Eosinophils # 0.0 Basophils # 0.0 Nucleated Red Blood Cells # 0.0 Sodium Level 135 Potassium Level 4.4 Chloride Level 107 Carbon Dioxide Level 21 Anion Gap 11 # Blood Urea Nitrogen 42 #H Creatinine 0.75 Glucose Level 226 H Calcium Level 7.9 L Triglycerides Level 92 Cholesterol Level 96 L LDL Cholesterol, Calculated 45 HDL Cholesterol 33 Cholesterol/HDL Ratio 2.9 Medications Medications Current Medications Vancomycin HCl 1.25 gm/Sodium Chloride 250 ml @ 83.333 mls/ hr Q24H IVPB Last administered on 04/23/17 14:54; Admin Dose 83.333 MLS/HR; Start 04/23/17 at 12:00 Levetiracetam (Keppra 500 Mg/ 100ml (Pmx)) 100 ml @ 400 mls/hr Q12 IVPB Last administered on 04/24/17 09:22; Admin Dose 400 MLS/HR; Start 04/23/17 at 10: 00 Enoxaparin Sodium 65 mg 65 mg Q12 SC ; Start 04/23/17 at 21:00; Status Future Hold Cefepime HCl (Maxipime 1gm/50 ml (Pmx)) 50 ml @ 100 mls/hr Q12 IVPB Last administered on 04/24/17 10:12; Admin Dose 100 MLS/HR; Start 04/23/17 at 13: 30 Aspirin 81 mg 81 mg DAILY NGT Last administered on 04/23/17 18:09; Admin Dose 81 MG; Start 04/23/17 at 18:00; Status Future Hold Pantoprazole 80 mg/Sodium Chloride 100 ml @ 10 mls/hr Q10H IV Last administered on 04/24/17 06:46; Admin Dose 10 MLS/HR; Start 04/23/17 at 21:00 Dextrose/Sodium Chloride (D5-1/2ns) 1,000 ml @ 75 mls/hr [id number] IV Last administered on 04/23/17 21:13; Admin Dose 75 MLS/HR; Start 04/23/17 at 21:00 Famotidine (Pepcid Iv) 20 mg BID IV ; Start 04/24/17 at 09:30 Copies To: CC: LEIF DOVE MD, VICTORIA Apr 24, 2017 11:14
[2017-04-24] MEDS: VANCOMYCIN 1.25 GM in SOD CHLORIDE 0.9% 250 ML IVPB SCH (12:00)
--- NOTE | 2017-04-24 13:15 | CONS ---
Date/Time of Note Date/Time of Note DATE: 04/24/17 TIME: 13:11 Assessment/Plan Assessment/Plan Additional Assessment/Plan Severe sepsis Likely GI bleed Myocardial infarction, likely type II Respiratory failure Preserved ejection fraction -Patient with evidence of elevated troponin concerning for myocardial infarction , likely type II. Patient was put on Lovenox and aspirin and now with coffee- ground drainage from PEG tube. Patient undergoing GI evaluation. Given patient with elevated troponins, patient is at high risk for any procedures at the current time. But a patient with active GI bleed, the benefits likely outweigh the risks. Would continue to hold antiplatelet and anticoagulant. Continue statin therapy. No beta-henrik given borderline blood pressure. Consultation Date/Type/Reason Admit Date/Time Apr 22, 2017 at 05:39 Initial Consult Date 04/24/17 Type of Consultation: cv 24 HR Interval Summary Free Text/Dictation Patient seen and examined. In discussion with nursing staff, patient with approximately 200 mL's of coffee-ground material from the PEG tube. Exam/Review of Systems Vital Signs Vitals Vital Signs Date Time Temp Pulse Resp B/P Pulse Ox O2 Delivery O2 Flow Rate FiO2 04/24/17 12:30 89 22 98 30 04/24/17 06:00 91/60 Mechanical Ventilator 04/24/17 04:00 99.5 04/22/17 19:43 Intake and Output 04/23/17 04/23/17 04/24/17 15:00 23:00 07:00 Intake Total 150 ml 550.000 ml 525 ml Output Total 265 ml 440 ml 180 ml Balance -115 ml 110.000 ml 345 ml Exam Awake, looks at me when her name is called, not following commands, no apparent distress Head: normocephalic Neck: other (Tracheostomy) Respiratory: other (Coarse breath sounds bilaterally) Cardiovascular: other (S1-S2 heard), regular rate and rhythm Gastrointestinal: bowel sounds, other (Grimaces with palpation), soft Extremities: edema Results Result Diagram: 04/24/17 0503 04/24/17 0503 Results 24 hrs Laboratory Tests Test 04/23/17 18:10 04/23/17 20:45 04/24/17 00:29 04/24/17 05:03 Creatine Kinase 75 59 Creatine Kinase Index 7.8 7.9 Creatinine Kinase MB (Mass) 5.85 H 4.66 H Troponin I 2.680 *H 2.530 *H Hemoglobin 12.7 10.4 L Hematocrit 37.8 31.8 L White Blood Count 16.0 #H Red Blood Count 3.59 #L Mean Corpuscular Volume 88.6 Mean Corpuscular Hemoglobin 29.0 Mean Corpuscular Hemoglobin Concent 32.7 Red Cell Distribution Width 14.9 H Platelet Count 299 Mean Platelet Volume 11.2 H Neutrophils % 77.1 H Lymphocytes % 11.8 L Monocytes % 10.6 Eosinophils % 0.0 Basophils % 0.1 Nucleated Red Blood Cells % 0.0 Neutrophils # 12.3 H Lymphocytes # 1.9 Monocytes # 1.7 H Eosinophils # 0.0 Basophils # 0.0 Nucleated Red Blood Cells # 0.0 Sodium Level 135 Potassium Level 4.4 Chloride Level 107 Carbon Dioxide Level 21 Anion Gap 11 # Blood Urea Nitrogen 42 #H Creatinine 0.75 Glucose Level 226 H Calcium Level 7.9 L Triglycerides Level 92 Cholesterol Level 96 L LDL Cholesterol, Calculated 45 HDL Cholesterol 33 Cholesterol/HDL Ratio 2.9 Medications Medications Current Medications Vancomycin HCl 1.25 gm/Sodium Chloride 250 ml @ 83.333 mls/ hr Q24H IVPB Last administered on 04/23/17 14:54; Admin Dose 83.333 MLS/HR; Start 04/23/17 at 12:00 Levetiracetam (Keppra 500 Mg/ 100ml (Pmx)) 100 ml @ 400 mls/hr Q12 IVPB Last administered on 04/24/17 09:22; Admin Dose 400 MLS/HR; Start 04/23/17 at 10: 00 Enoxaparin Sodium 65 mg 65 mg Q12 SC ; Start 04/23/17 at 21:00; Status Future Hold Cefepime HCl (Maxipime 1gm/50 ml (Pmx)) 50 ml @ 100 mls/hr Q12 IVPB Last administered on 04/24/17 10:12; Admin Dose 100 MLS/HR; Start 04/23/17 at 13: 30 Aspirin 81 mg 81 mg DAILY NGT Last administered on 04/23/17 18:09; Admin Dose 81 MG; Start 04/23/17 at 18:00; Status Future Hold Pantoprazole 80 mg/Sodium Chloride 100 ml @ 10 mls/hr Q10H IV Last administered on 04/24/17 06:46; Admin Dose 10 MLS/HR; Start 04/23/17 at 21:00 Dextrose/Sodium Chloride (D5-1/2ns) 1,000 ml @ 75 mls/hr [id number] IV Last administered on 04/24/17 10:20; Admin Dose 75 MLS/HR; Start 04/23/17 at 21:00 Famotidine (Pepcid Iv) 20 mg BID IV Last administered on 04/24/17 11:33; Admin Dose 20 MG; Start 04/24/17 at 09:30 Roberto Carlos Rodriguez DO Apr 24, 2017 13:15
[2017-04-24 13:45] LABS: HEMATOCRIT 27.8 % (37.0-47.0); HEMOGLOBIN 9.5 g/dl (12.0-16.0)
--- NOTE | 2017-04-24 14:33 | PN ---
DATE: 04/24/2017 SUBJECTIVE: Patient is awake, looks comfortable, noncommunicative, in no distress. VITAL SIGNS: Temperature 99.5, pulse 101, respirations 18, blood pressure 91/60, saturation 98 on 3 0 FIO2. LABORATORY DATA: WBC 16, H and H 10.4 and 31.8, platelets 299, neutrophils 77.1. BUN 42, creatinin e 0.75. MICROBIOLOGY: Urine culture grew Streptococcus agalactiae. Blood cultures remain negative. INDWELLINGS: Trach, PEG, Johnson, peripheral IV. ANTIMICROBIALS: The patient is on: 1. Cefepime. 2. Vancomycin. PHYSICAL EXAMINATION: GENERAL: A chronically ill-appearing, fragile, elderly woman who is in no distress. HEENT: Head atraumatic, normocephalic. Sclerae anicteric. Buccal mucosa dry. NECK: Supple. CHEST: Rise symmetrical. Breath sounds diminished to bases. HEART: S1, S2. ABDOMEN: Soft, bowel tones present. EXTREMITIES: Without cyanosis. ASSESSMENT: 1. Severe sepsis status post shock. 2. Bilateral healthcare-associated pneumonia. 3. Acute on chronic respiratory failure. 4. Urinary tract infection. 5. Bilateral mastoiditis per CT of the brain. 6. Seizures. PLAN: The patient remains stable. Continue present care, antibiotics. Follow recommendations of s pecialists. Dictated By: JERONIMO CHINO PRODUCTION PAINTER for MARGIE ESCOBEDO/MICHAEL Conf#: [id number] DID#: [id number]
--- NOTE | 2017-04-24 14:43 | RADRPT ---
Echocardiogram Report Patient Name: STEPHANIE GAONA Gender: Female Date: 1945 Study Date: 23-Apr-2017 Brain Surgeon: Juan Jose Tucker RDCS Location: 103 Ref. Physician: GREGORIA BABB Quality: Adequate Procedures: Transthoracic echocardiogram with complete 2D, M-Mode, and doppler examination. Indications: Sepsis. 2D/M Mode Doppler Measurement Value Normal Ranges Measurement Value Normal Ranges LVIDd 2D 4.0 3.5 - 5.6 cm AV Peak Khari 1.6 m/sec LVIDs 2D 2.7 2.1 - 4.1 cm AV Peak PG 9.7 mmHg LVPWd 2D 0.9 0.6 - 1.1 cm LVOT Peak Khari 0.8 m/sec IVSd 2D 1.2 0.6 - 1.1 cm LVOT Peak PG 2.7 mmHg AoR Diam 2D 2.3 2.0 - 3.7 cm EDV 2D 70.9 cm3 ESV 2D 20.3 cm3 LA Dimen 2D 2.7 2.3 - 4.0 cm Findings Left Ventricle: Normal left ventricular cavity size. Mild concentric left ventricular hypertrophy. Severe left ventricular systolic dysfunction. Ejection fraction is visually estimated at 30 %. Multiple segmental wall motion abnormalities. Right Ventricle: Normal right ventricular size. Normal right ventricular systolic function. Left Atrium: The left atrium is normal in size. Right Atrium: The right atrium is normal in size. Mitral Valve: Mitral valve leaflets appear mildly thickened. Moderate mitral annular calcification. Mild mitral valve regurgitation. Aortic Valve: No hemodynamically significant aortic stenosis by doppler. Aortic cusps appear moderately calcified. Trace aortic valve regurgitation. Tricuspid Valve: Normal appearance of the tricuspid valve. Unable to obtain RVSP due to minimal presence of tricuspid regurgitation. Pulmonic Valve: Normal pulmonic valve appearance. Pericardium: Normal pericardium with no significant pericardial effusion. Aorta: Normal aortic root. IVC: Inferior vena cava without respiratory collapse, however, patient on ventilator. Conclusions 1.Normal left ventricular cavity size. Mild concentric left ventricular hypertrophy. Severe left ventricular systolic dysfunction. Ejection fraction is visually estimated at 30 %. Multiple segmental wall motion abnormalities. 2.Normal right ventricular size. Normal right ventricular systolic function. 3.The left atrium is normal in size. 4.The right atrium is normal in size. 5.Mild mitral valve regurgitation. 6.No significant valvular stenosis or regurgitation seen of remaining visualized valves. 7.Normal pericardium with no significant pericardial effusion. Electronically Signed By: Roberto Carlos Rodriguez 24-Apr-2017 14:43:36 -0800 Patient Name: STEPHANIE GAONA Study Date: 23-Apr-[id number]
--- NOTE | 2017-04-24 19:05 | HPN ---
Date/Time of Note Date/Time of Note DATE: 04/24/17 TIME: 19:05 Interval H&P Admission Note Pt. seen H&P reviewed: No system changes LEIF COOPER MD Apr 24, 2017 19:05
--- NOTE | 2017-04-24 19:26 | OPPN ---
Date/Time of Note Date/Time of Note DATE: 04/24/17 TIME: 19:19 Proc Note GI Procedure Date 04/24/17 Indication: other (GI bleeding) Pre-procedure Diagnosis GI bleeding Post-procedure Diagnosis Impression: Two distal esophageal ulcers, 8-10mm GT in place 1 cm antral , no stigmata of bleeding 4 duodenal ulcers no stigmata Plan: Continue Protonix drip until tomorrow If hemoglobin remains stable may restart feedings May also switch to Protonix 40 mg twice daily . Procedure Performed: Endoscopy (With biopsies) Surgeon LEIF COOPER MD See signature line [employer] Worker none Anesthesia Type: MAC Anesthesiologist: SKYLER ROE Tourniquet Time none EBL none Transfusion required none Biopsy 1: Gastric antrum Grafts/Implants none Tubes/Drains none Complication(s) none Disposition: other (ICU) Procedure Description After informed consent, with the patient/relatives understanding the procedure, its indications, potential risks and complications, including but not limited to : allergic reaction, bleeding, perforation or infection, and after all pertinent questions were answered to the patients satisfaction, the patient/ relatives signed witnessed informed consent. Following this, premedication was administered slowly IV push under careful cardiovascular and respiratory monitoring with pulse oximetry, automatic blood pressure, and internal communications specialist. Once the sedative effect was achieved the patient was place in the left lateral decubitus, the panendoscope was introduced and advanced under visual control. Careful examination of the upper gastrointestinal tract, both on insertion as well as withdrawal of the instrument disclosing the following findings: ESOPHAGUS: the mucosa of the entire esophagus was carefully examined and showed the following findings: There are 2 ulcerations distal esophagus measurement measuring 8-10 mm, no stigmata recent bleeding. Otherwise the mucosa appears within normal limits. There is no evidence of varices, neoplasm, or stricture. No Hiatal Hernia identified. STOMACH: Upon entrance to the stomach air was insufflated, the gastric qureshi distended normally. The mucosa of the fundus, body and antrum of the stomach was carefully examined both head-on and on retroflexion, and showed the following findings: There is an old gastrostomy tube which appears functional. There is a 1 cm antral gastric ulceration with clean base and no stigmata. Otherwise the mucosa appears within normal limits with no abnormalities. There is no evidence of gastritis, or neoplasm. PYLORUS: The pylorus was carefully examined and showed the following findings: the pylorus appears patent and within normal limits, with no evidence of gastric outlet obstruction. DUODENUM: The duodenal mucosa was carefully examined in the duodenal bulb as well as the second portion of the duodenum and showed the following findings: There are 4 duodenal ulcerations with no stigmata recent bleeding. Otherwise the mucosa appears unremarkable with no evidence of neoplasm. Copies To: CC: LEIF COOPER MD, MORDO MD Apr 24, 2017 19:25
[2017-04-25] VITALS (32 sets, daily range): BP systolic 89–126; BP diastolic 38–86; PULSE 51–88; RESP 14–22
[2017-04-25] MEDS: DEXTROSE 5%-0.45% NACL 1,000 ML IV SCH ×2 (00:54→14:46)
[2017-04-25 01:05] LABS: HEMATOCRIT 26.4 % (37.0-47.0); HEMOGLOBIN 8.6 g/dl (12.0-16.0)
[2017-04-25] MEDS: PANTOPRAZOLE IV 80 MG in SOD CHLORIDE 0.9% 100 ML IV SCH ×2 (05:34→14:46)
[2017-04-25 06:02] LABS: BASOPHIL # 0.1 10^3/ul (0.0-0.1); BASOPHILS % 0.5 % (0.0-2.0); EOSINOPHILS % 0.3 % (0.0-7.0); HEMATOCRIT 22.9 % (37.0-47.0); HEMOGLOBIN 7.7 g/dl (12.0-16.0); LYMPHOCYTES # 2.6 10^3/ul (0.8-2.9); LYMPHOCYTES % 23.7 % (15.0-51.0); MEAN CORPUSCULAR HEMOGLOBIN 29.7 pg (29.0-33.0); MEAN CORPUSCULAR HGB CONC 33.6 g/dl (32.0-37.0); MEAN CORPUSCULAR VOLUME 88.4 fl (82.0-101.0); MONOCYTE # 1.2 10^3/ul (0.3-0.9); MONOCYTES % 10.7 % (0.0-11.0); NEUTROPHIL # 7.1 10^3/ul (1.6-7.5); NEUTROPHILS % 64.3 % (39.0-77.0); PLATELET COUNT 231 10^3/UL (140-415); RED BLOOD COUNT 2.59 10^6/ul (4.20-5.40); RED CELL DISTRIBUTION WIDTH 15.1 % (11.5-14.5)
[2017-04-25 06:39] LABS: MAGNESIUM 1.7 mg/dl (1.7-2.5); PHOSPHORUS 1.9 mg/dl (2.5-4.9)
[2017-04-25 06:40] LABS: CALCIUM 7.9 mg/dl (8.4-10.2); CREATININE 0.68 mg/dl (0.44-1.00); POTASSIUM 3.4 mmol/L (3.5-5.1)
[2017-04-25] MEDS: CEFEPIME 1GM/50 ML (PMX) 50 ML IVPB SCH ×2 (08:49→21:52)
[2017-04-25] MEDS: LEVETIRACETAM 500 MG (PMX) 100 ML IVPB SCH ×2 (08:50→22:41)
[2017-04-25] MEDS ORDERED: ONDANSETRON 4 MG INJ IV PRN (09:30)
--- NOTE | 2017-04-25 09:32 | PN ---
Date/Time of Note Date/Time of Note DATE: 04/25/17 TIME: 09:25 Assessment/Plan VTE Prophylaxis VTE Prophylaxis Intervention: SCD's Lines/Catheters IV Catheter Type (from Nrsg): Peripheral IV Urinary Cath still in place: Yes Reason Cath still needed: other (indicate) (monitor out-put) Assessment/Plan Chief Complaint/Hosp Course Summary Assessment and Plan: Assessment: Upper GI bleed EGD 04/24/17 Impression: Two distal esophageal ulcers, 8-10mm GT in place 1 cm antral , no stigmata of bleeding 4 duodenal ulcers no stigmata NSTEMI vs Demand Ischemia Left bundle branch block-sinus tachycardia UTI PNA Ventilator dependent respiratory failure Dysphagia with PEG Recent seizure History of CVA Plan: Continue Protonix drip today, HGB dropped to 7.7 Will reassess tomorrow if stable switch drip to PPI BID NPO today, again if HGB stable overnight re-start tube feeding tomorrow Monitor h/h transfuse as needed Patient seen in collaboration with DR. Dove Subjective: Course reviewed with nursing staff Patient interviewed and examined All labs, imaging and other results reviewed The patient appears stable s/p EGD yesterday, results above, However slight drop in HGB, no active bleeding from G-tube noted, will continue to closely monitor and transfuse as needed. PHYSICAL EXAMINATION: GENERAL: Chronically ill-appearing, nonverbal SKIN: No lesions, no stigmata chronic liver disease, LYMPHATIC: No palpable lymphadenopathy. HEAD: Normocephalic, atraumatic, no tenderness. EYES: Pupils equal reactive to light and accommodation, EARS/NOSE AND THROAT: Ears normal, nose normal, oropharynx normal. NECK: Supple, no masses, thyroid normal, CHEST: Inspection within normal limits. CARDIOVASCULAR: Sinus tachycardia RESPIRATORY: Trach in place GASTROINTESTINAL AND LIVER: Abdomen: Soft, non tenderness, non-distended, no hernias, no masses, PEG in place, normoactive bowel sounds. Rectal: Deferred. GENITOURINARY:Female genitalia within normal limits. EXTREMITIES: No cyanosis, clubbing or edema. Problems: Exam/Review of Systems Vital Signs Vitals Vital Signs Date Time Temp Pulse Resp B/P Pulse Ox O2 Delivery O2 Flow Rate FiO2 04/25/17 08:00 30 04/25/17 07:35 74 14 100 04/25/17 05:00 117/51 Mechanical Ventilator 04/25/17 04:00 98.5 04/22/17 19:43 Intake and Output 04/24/17 04/24/17 04/25/17 14:59 22:59 06:59 Intake Total 340 ml 645 ml Output Total 130 ml 230 ml Balance 210 ml 415 ml Results Result Diagram: 04/25/17 0458 04/25/17 0458 Results 24 hrs Laboratory Tests Test 04/24/17 13:37 04/25/17 00:28 04/25/17 04:58 Hemoglobin 9.5 L 8.6 L 7.7 L Hematocrit 27.8 L 26.4 L 22.9 L White Blood Count 11.0 #H Red Blood Count 2.59 #L Mean Corpuscular Volume 88.4 Mean Corpuscular Hemoglobin 29.7 Mean Corpuscular Hemoglobin Concent 33.6 Red Cell Distribution Width 15.1 H Platelet Count 231 # Mean Platelet Volume 11.0 H Neutrophils % 64.3 Lymphocytes % 23.7 Monocytes % 10.7 Eosinophils % 0.3 Basophils % 0.5 Nucleated Red Blood Cells % 0.0 Neutrophils # 7.1 Lymphocytes # 2.6 Monocytes # 1.2 H Eosinophils # 0.0 Basophils # 0.1 Nucleated Red Blood Cells # 0.0 Sodium Level 139 Potassium Level 3.4 L Chloride Level 111 H Carbon Dioxide Level 21 Anion Gap 10 Blood Urea Nitrogen 39 H Creatinine 0.68 Glucose Level 199 Calcium Level 7.9 L Phosphorus Level 1.9 L Magnesium Level 1.7 Medications Medications Current Medications Vancomycin HCl 1.25 gm/Sodium Chloride 250 ml @ 83.333 mls/ hr Q24H IVPB Last administered on 04/24/17 12:00; Admin Dose 83.333 MLS/HR; Start 04/23/17 at 12:00 Levetiracetam (Keppra 500 Mg/ 100ml (Pmx)) 100 ml @ 400 mls/hr Q12 IVPB Last administered on 04/25/17 08:50; Admin Dose 400 MLS/HR; Start 04/23/17 at 10: 00 Enoxaparin Sodium 65 mg 65 mg Q12 SC ; Start 04/23/17 at 21:00; Status Future Hold Cefepime HCl (Maxipime 1gm/50 ml (Pmx)) 50 ml @ 100 mls/hr Q12 IVPB Last administered on 04/25/17 08:49; Admin Dose 100 MLS/HR; Start 04/23/17 at 13: 30 Aspirin 81 mg 81 mg DAILY NGT Last administered on 04/23/17 18:09; Admin Dose 81 MG; Start 04/23/17 at 18:00; Status Future Hold Pantoprazole 80 mg/Sodium Chloride 100 ml @ 10 mls/hr Q10H IV Last administered on 04/25/17 05:34; Admin Dose 10 MLS/HR; Start 04/23/17 at 21:00 Dextrose/Sodium Chloride 1,000 ml @ 75 mls/hr [id number] IV Last administered on 04/25/17 00:54; Admin Dose 75 MLS/HR; Start 04/23/17 at 21:00 Potassium Phosphate/Sodium Chloride (K Phos (Meq)/NS) 259.0909 ml @ 64.773 m... ONCE ONCE IVPB ; Start 04/25/17 at 10:30; Stop 04/25/17 at 14:29 Ondansetron HCl (Zofran Inj) 4 mg Q6H PRN IV NAUSEA AND/OR VOMITING; Start at 09:30; Status ASHISH SINGH Apr 25, 2017 09:32
--- NOTE | 2017-04-25 09:33 | PN ---
Date/Time of Note Date/Time of Note DATE: 04/25/17 TIME: 09:25 Assessment/Plan VTE Prophylaxis VTE Prophylaxis Intervention: contraindicated VTE Contraindication Reason: bleeding Lines/Catheters IV Catheter Type (from Nrs): Peripheral IV Urinary Cath still in place: Yes Reason Cath still needed: urinary retention Assessment/Plan Chief Complaint/Hosp Course S: Patient had EGD performed yesterday with ulcers found, on PPI drip presently. O: VS (see below) PE: Constitutional: opens eyes, non-verbal Head: atraumatic, normocephalic Eyes: EOMI, PERRL ENMT: less dry mucous membranes Respiratory: less diminished breath sounds Cardiovascular: regular rate and rhythm, No edema, No murmurs/extra sounds, No systolic murmur Gastrointestinal: bowel sounds, non-tender, soft, No distended, No rebound or guarding Musculoskeletal: clubbing right foot Extremities: normal pulses Skin: No diaphoresis, No ecchymosis Assessment/Plan: 72-year-old female sent from the [facility] with: 1. Sepsis secondary to UTI and pneumonia - Patient remains afebrile, WBC trending down today. Lima cultures final results pending - For now continue IV Azactam, Vancomycin, and Levaquin - ID on board and recommendations appreciated. - Pulmonology on board and recommendations appreciated - Continue to monitor 2. Elevated troponins - NSTEMI versus demand ischemia vs sepsis. With the bleeding that occurred through G-tube 2 days ago, Lovenox has been held. -Conservative treatment for now, follow cardiology recommendations -Continue to monitor heart rate 3. Acute on chronic resp failure- vent dependent, s/p trach - Continue current management - Pulm on [id number] their recommendations 4. Seizure episode -occurred in ER, currently on Keppra. -Follow-up results of EEG 5. Metabolic acidosis -resolved now -Monitor 6. hyponatremia- resolved - continue monitoring 7. GI bleed: Again patient had EGD with esophageal, antral, duodenal ulcers found. Nonbleeding. On PPI drip. Hemoglobin lower today (7.7). -Continue PPI drip, continue to hold Lovenox, follow GI recommendations 8. Disposition - Continue monitoring in ICU, palliative team met with family as well, patient is now DNR, appreciate their input. Critical care time spent with patient today equals 40 minutes. Problems: Exam/Review of Systems Vital Signs Vitals Vital Signs Date Time Temp Pulse Resp B/P Pulse Ox O2 Delivery O2 Flow Rate FiO2 04/25/17 08:00 30 04/25/17 07:35 74 14 100 04/25/17 05:00 117/51 Mechanical Ventilator 04/25/17 04:00 98.5 04/22/17 19:43 Intake and Output 04/24/17 04/24/17 04/25/17 15:00 23:00 07:00 Intake Total 475 ml 510 ml Output Total 180 ml 180 ml Balance 295 ml 330 ml Results Result Diagram: 04/25/17 0458 04/25/17 0458 Results 24 hrs Laboratory Tests Test 04/24/17 13:37 04/25/17 00:28 04/25/17 04:58 Hemoglobin 9.5 L 8.6 L 7.7 L Hematocrit 27.8 L 26.4 L 22.9 L White Blood Count 11.0 #H Red Blood Count 2.59 #L Mean Corpuscular Volume 88.4 Mean Corpuscular Hemoglobin 29.7 Mean Corpuscular Hemoglobin Concent 33.6 Red Cell Distribution Width 15.1 H Platelet Count 231 # Mean Platelet Volume 11.0 H Neutrophils % 64.3 Lymphocytes % 23.7 Monocytes % 10.7 Eosinophils % 0.3 Basophils % 0.5 Nucleated Red Blood Cells % 0.0 Neutrophils # 7.1 Lymphocytes # 2.6 Monocytes # 1.2 H Eosinophils # 0.0 Basophils # 0.1 Nucleated Red Blood Cells # 0.0 Sodium Level 139 Potassium Level 3.4 L Chloride Level 111 H Carbon Dioxide Level 21 Anion Gap 10 Blood Urea Nitrogen 39 H Creatinine 0.68 Glucose Level 199 Calcium Level 7.9 L Phosphorus Level 1.9 L Magnesium Level 1.7 Medications Medications Current Medications Vancomycin HCl 1.25 gm/Sodium Chloride 250 ml @ 83.333 mls/ hr Q24H IVPB Last administered on 04/24/17 12:00; Admin Dose 83.333 MLS/HR; Start 04/23/17 at 12:00 Levetiracetam (Keppra 500 Mg/ 100ml (Pmx)) 100 ml @ 400 mls/hr Q12 IVPB Last administered on 04/25/17 08:50; Admin Dose 400 MLS/HR; Start 04/23/17 at 10: 00 Enoxaparin Sodium 65 mg 65 mg Q12 SC ; Start 04/23/17 at 21:00; Status Future Hold Cefepime HCl (Maxipime 1gm/50 ml (Pmx)) 50 ml @ 100 mls/hr Q12 IVPB Last administered on 04/25/17 08:49; Admin Dose 100 MLS/HR; Start 04/23/17 at 13: 30 Aspirin 81 mg 81 mg DAILY NGT Last administered on 04/23/17 18:09; Admin Dose 81 MG; Start 04/23/17 at 18:00; Status Future Hold Pantoprazole 80 mg/Sodium Chloride 100 ml @ 10 mls/hr Q10H IV Last administered on 04/25/17 05:34; Admin Dose 10 MLS/HR; Start 04/23/17 at 21:00 Dextrose/Sodium Chloride 1,000 ml @ 75 mls/hr [id number] IV Last administered on 04/25/17 00:54; Admin Dose 75 MLS/HR; Start 04/23/17 at 21:00 Potassium Phosphate/Sodium Chloride (K Phos (Meq)/NS) 259.0909 ml @ 64.773 m... ONCE ONCE IVPB ; Start 04/25/17 at 10:30; Stop 04/25/17 at 14:29 Ondansetron HCl (Zofran Inj) 4 mg Q6H PRN IV NAUSEA AND/OR VOMITING; Start at 09:30; Status MARCO CHEN Apr 25, 2017 09:33
[2017-04-25] MEDS ORDERED: POTASSIUM PHOSPHATE 40 MEQ in SOD CHLORIDE 0.9% 250 ML IVPB ONE (10:30)
--- NOTE | 2017-04-25 11:32 | CONS ---
Date/Time of Note Date/Time of Note DATE: 04/25/17 TIME: 11:30 Assessment/Plan Assessment/Plan Additional Assessment/Plan Ventilator setting; AC of 14, tidal volume 500, PEEP of 5, 30% FiO2. Patient is on Protonix drip at 10 mg/h. Assessment and recommendations; 1. Patient admitted with bilateral pneumonia with a history of chronic respiratory failure which is ventilator dependent. Clinically improved. 2. Advanced dementia. 3. Chronic anemia. Continue current treatment. Patient can be transferred to the telemetry unit. Monitor H&H. Consultation Date/Type/Reason Admit Date/Time Apr 22, 2017 at 05:39 Type of Consultation: Pulmonary/critical care 24 HR Interval Summary Free Text/Dictation Patient's condition is stable. Remains awake but unresponsive to any commands owing to underlying dementia. Patient has remained hemodynamically stable. General exam; elderly woman, on ventilator via tracheostomy, awake, currently in no distress. Exam/Review of Systems Vital Signs Vitals Vital Signs Date Time Temp Pulse Resp B/P Pulse Ox O2 Delivery O2 Flow Rate FiO2 04/25/17 11:00 20 104/86 100 Mechanical Ventilator 04/25/17 10:00 75 04/25/17 09:40 30 04/25/17 08:00 97.7 04/22/17 19:43 Intake and Output 04/24/17 04/24/17 04/25/17 15:00 23:00 07:00 Intake Total 475 ml 510 ml Output Total 180 ml 230 ml Balance 295 ml 280 ml Exam HEENT exam; supple neck, no JVD. No lymphadenopathy. Midline trachea. No thyromegaly. Tracheostomy in place. Patient is edentulous. Chest exam; diminished but clear breath sounds. S1-S2 audible, no murmurs. Regular rhythm. Abdomen exam; soft, nondistended. G-tube in place. Bowel sounds audible. Extremity exam; no edema. 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 Results Result Diagram: 04/25/17 0458 04/25/17 0458 Results 24 hrs Laboratory Tests Test 04/24/17 13:37 04/25/17 00:28 04/25/17 04:58 Hemoglobin 9.5 L 8.6 L 7.7 L Hematocrit 27.8 L 26.4 L 22.9 L White Blood Count 11.0 #H Red Blood Count 2.59 #L Mean Corpuscular Volume 88.4 Mean Corpuscular Hemoglobin 29.7 Mean Corpuscular Hemoglobin Concent 33.6 Red Cell Distribution Width 15.1 H Platelet Count 231 # Mean Platelet Volume 11.0 H Neutrophils % 64.3 Lymphocytes % 23.7 Monocytes % 10.7 Eosinophils % 0.3 Basophils % 0.5 Nucleated Red Blood Cells % 0.0 Neutrophils # 7.1 Lymphocytes # 2.6 Monocytes # 1.2 H Eosinophils # 0.0 Basophils # 0.1 Nucleated Red Blood Cells # 0.0 Sodium Level 139 Potassium Level 3.4 L Chloride Level 111 H Carbon Dioxide Level 21 Anion Gap 10 Blood Urea Nitrogen 39 H Creatinine 0.68 Glucose Level 199 Calcium Level 7.9 L Phosphorus Level 1.9 L Magnesium Level 1.7 Medications Medications Current Medications Vancomycin HCl 1.25 gm/Sodium Chloride 250 ml @ 83.333 mls/ hr Q24H IVPB Last administered on 04/24/17 12:00; Admin Dose 83.333 MLS/HR; Start 04/23/17 at 12:00 Levetiracetam (Keppra 500 Mg/ 100ml (Pmx)) 100 ml @ 400 mls/hr Q12 IVPB Last administered on 04/25/17 08:50; Admin Dose 400 MLS/HR; Start 04/23/17 at 10: 00 Enoxaparin Sodium 65 mg 65 mg Q12 SC ; Start 04/23/17 at 21:00; Status Future Hold Cefepime HCl (Maxipime 1gm/50 ml (Pmx)) 50 ml @ 100 mls/hr Q12 IVPB Last administered on 04/25/17 08:49; Admin Dose 100 MLS/HR; Start 04/23/17 at 13: 30 Aspirin 81 mg 81 mg DAILY NGT Last administered on 04/23/17 18:09; Admin Dose 81 MG; Start 04/23/17 at 18:00; Status Future Hold Pantoprazole 80 mg/Sodium Chloride 100 ml @ 10 mls/hr Q10H IV Last administered on 04/25/17 05:34; Admin Dose 10 MLS/HR; Start 04/23/17 at 21:00 Dextrose/Sodium Chloride 1,000 ml @ 75 mls/hr [id number] IV Last administered on 04/25/17 00:54; Admin Dose 75 MLS/HR; Start 04/23/17 at 21:00 Potassium Phosphate/Sodium Chloride (K Phos (Meq)/NS) 259.0909 ml @ 64.773 m... ONCE ONCE IVPB Last administered on 04/25/17 10:50; Admin Dose 64.773 MLS/HR; Start 04/25/17 at 10:30; Stop 04/25/17 at 14:29 Ondansetron HCl (Zofran Inj) 4 mg Q6H PRN IV NAUSEA AND/OR VOMITING; Start at 09:30 Lorazepam (Ativan) 0.5 mg Q6H PRN IV AGITATION; Start 04/25/17 at 10:00 Miscellaneous Information (*Rx Drug Level Order Reminder*) 1 ONCE ONCE XX ; Start 04/26/17 at 11:00; Stop 04/26/17 at 11:01 CRISELDA EDWARD Apr 25, 2017 11:32
[2017-04-25] MEDS: VANCOMYCIN 1.25 GM in SOD CHLORIDE 0.9% 250 ML IVPB SCH (11:58)
[2017-04-25 12:24] LABS: HEMATOCRIT 22.5 % (37.0-47.0); HEMOGLOBIN 7.5 g/dl (12.0-16.0)
--- NOTE | 2017-04-25 13:04 | PN ---
DATE: 04/25/2017 SUBJECTIVE: No acute changes. The patient is lying comfortably in bed. She is awake, in no distre ss. VITAL SIGNS: Temperature 97.7, pulse 75, respirations 20, blood pressure 104/86, saturation 100 on 30 FIO2. WBC 11, H and H 7.7 and 22.1, platelets 231, neutrophils 64.3, BUN 39, creatinine 0.68. MICROBIOLOGY: Blood cultures remain negative. Urine culture grew strep. INDWELLINGS: Trach, PEG, Johnson, and peripheral IV. ANTIMICROBIALS: The patient is on: 1. Vancomycin. 2. Cefepime. PHYSICAL EXAMINATION: GENERAL: Chronically ill-appearing, elderly woman who is in no distress. HEENT: Head atraumatic, normocephalic. Sclerae anicteric. Buccal mucosa dry. NECK: Supple. CHEST: Rise symmetrical. Breath sounds diminished to bases. HEART: S1, S2. ABDOMEN: Soft, bowel sounds present. EXTREMITIES: Without cyanosis. ASSESSMENT: 1. Sepsis, status post shock. 2. Healthcare-associated pneumonia. 3. Bilateral mastoiditis per CT of the brain. 4. Streptococcal urinary tract infection. 5. Anemia, status post EGD that revealed 2 distal esophageal ulcers. PLAN: Patient remains stable. Continue present care, antibiotics. Follow recommendations of chris marquez. Dictated By: JERONIMO CHINO INTERNAL AUDIT SENIOR MANAGER for MARGIE ESCOBEDO/MICHAEL Conf#: [id number] DID#: [id number]
--- NOTE | 2017-04-25 14:12 | CONS ---
Date/Time of Note Date/Time of Note DATE: 04/25/17 TIME: 14:10 Assessment/Plan Assessment/Plan Additional Assessment/Plan Severe sepsis Cardiomyopathy with ejection fraction 30% Likely GI bleed Myocardial infarction, likely type II Respiratory failure Preserved ejection fraction -Patient with evidence of elevated troponin concerning for myocardial infarction , likely type II. Patient was put on Lovenox and aspirin and now with coffee- ground drainage from PEG tube. Patient status post EGD with evidence of ulcer and no active bleeding. Would continue to hold antiplatelet and anticoagulant. Echocardiogram demonstrated depressed ejection fraction. Continue statin therapy. No beta-henrik or ANNELISE inhibitor given borderline blood pressure. Consultation Date/Type/Reason Admit Date/Time Apr 22, 2017 at 05:39 Initial Consult Date 04/24/17 Type of Consultation: cv 24 HR Interval Summary Free Text/Dictation Patient status post EGD and found to have ulcers with no active bleeding. Otherwise no new cardiac issues Exam/Review of Systems Vital Signs Vitals Vital Signs Date Time Temp Pulse Resp B/P Pulse Ox O2 Delivery O2 Flow Rate FiO2 04/25/17 13:20 88 14 99 30 04/25/17 11:00 104/86 Mechanical Ventilator 04/25/17 08:00 97.7 04/22/17 19:43 Intake and Output 04/24/17 04/24/17 04/25/17 15:00 23:00 07:00 Intake Total 475 ml 510 ml Output Total 180 ml 230 ml Balance 295 ml 280 ml Exam Awake, no apparent distress, not following commands Head: normocephalic Neck: other (Tracheostomy) Respiratory: other (Coarse breath sounds bilaterally, no wheezing) Cardiovascular: other (S1-S2 heard), regular rate and rhythm Gastrointestinal: bowel sounds, non-tender, soft Extremities: edema Results Result Diagram: 04/25/17 1201 04/25/17 0458 Results 24 hrs Laboratory Tests Test 04/25/17 00:28 04/25/17 04:58 04/25/17 12:01 Hemoglobin 8.6 L 7.7 L 7.5 L Hematocrit 26.4 L 22.9 L 22.5 L White Blood Count 11.0 #H Red Blood Count 2.59 #L Mean Corpuscular Volume 88.4 Mean Corpuscular Hemoglobin 29.7 Mean Corpuscular Hemoglobin Concent 33.6 Red Cell Distribution Width 15.1 H Platelet Count 231 # Mean Platelet Volume 11.0 H Neutrophils % 64.3 Lymphocytes % 23.7 Monocytes % 10.7 Eosinophils % 0.3 Basophils % 0.5 Nucleated Red Blood Cells % 0.0 Neutrophils # 7.1 Lymphocytes # 2.6 Monocytes # 1.2 H Eosinophils # 0.0 Basophils # 0.1 Nucleated Red Blood Cells # 0.0 Sodium Level 139 Potassium Level 3.4 L Chloride Level 111 H Carbon Dioxide Level 21 Anion Gap 10 Blood Urea Nitrogen 39 H Creatinine 0.68 Glucose Level 199 Calcium Level 7.9 L Phosphorus Level 1.9 L Magnesium Level 1.7 Medications Medications Current Medications Vancomycin HCl 1.25 gm/Sodium Chloride 250 ml @ 83.333 mls/ hr Q24H IVPB Last administered on 04/25/17 11:58; Admin Dose 83.333 MLS/HR; Start 04/23/17 at 12:00 Levetiracetam (Keppra 500 Mg/ 100ml (Pmx)) 100 ml @ 400 mls/hr Q12 IVPB Last administered on 04/25/17 08:50; Admin Dose 400 MLS/HR; Start 04/23/17 at 10: 00 Enoxaparin Sodium 65 mg 65 mg Q12 SC ; Start 04/23/17 at 21:00; Status Future Hold Cefepime HCl (Maxipime 1gm/50 ml (Pmx)) 50 ml @ 100 mls/hr Q12 IVPB Last administered on 04/25/17 08:49; Admin Dose 100 MLS/HR; Start 04/23/17 at 13: 30 Aspirin 81 mg 81 mg DAILY NGT Last administered on 04/23/17 18:09; Admin Dose 81 MG; Start 04/23/17 at 18:00; Status Future Hold Pantoprazole 80 mg/Sodium Chloride 100 ml @ 10 mls/hr Q10H IV Last administered on 04/25/17 05:34; Admin Dose 10 MLS/HR; Start 04/23/17 at 21:00 Dextrose/Sodium Chloride 1,000 ml @ 75 mls/hr [id number] IV Last administered on 04/25/17 00:54; Admin Dose 75 MLS/HR; Start 04/23/17 at 21:00 Potassium Phosphate/Sodium Chloride (K Phos (Meq)/NS) 259.0909 ml @ 64.773 m... ONCE ONCE IVPB Last administered on 04/25/17t 10:50; Admin Dose 64.773 MLS/HR; Start 04/25/17 at 10:30; Stop 04/25/17 at 14:29 Ondansetron HCl (Zofran Inj) 4 mg Q6H PRN IV NAUSEA AND/OR VOMITING; Start at 09:30 Lorazepam (Ativan) 0.5 mg Q6H PRN IV AGITATION; Start 04/25/17 at 10:00 Miscellaneous Information (*Rx Drug Level Order Reminder*) 1 ONCE ONCE XX ; Start 04/26/17 at 11:00; Stop 04/26/17 at 11:01 Roberto Carlos Rodriguez DO Apr 25, 2017 14:12
[2017-04-25] MEDS ORDERED: MAGNESIUM SULFATE 3 GM in DEXTROSE 5% 100 ML IVPB ONE (14:30)
[2017-04-25 19:06] LABS: HEMATOCRIT 23.1 % (37.0-47.0); HEMOGLOBIN 7.8 g/dl (12.0-16.0)
[2017-04-25] MEDS: LORAZEPAM 2 MG INJ IV PRN (22:50)
[2017-04-26] VITALS (25 sets, daily range): BP systolic 91–123; BP diastolic 47–71; PULSE 38–76; RESP 14–24
[2017-04-26 01:40] LABS: HEMATOCRIT 20.9 % (37.0-47.0)
[2017-04-26] MEDS: PANTOPRAZOLE IV 80 MG in SOD CHLORIDE 0.9% 100 ML IV SCH ×3 (01:50→12:37)
[2017-04-26 07:56] LABS: HEMATOCRIT 20.4 % (37.0-47.0)
[2017-04-26 08:07] LABS: HEMOGLOBIN 6.9 g/dl (12.0-16.0)
[2017-04-26 08:20] LABS: MAGNESIUM 2.1 mg/dl (1.7-2.5); PHOSPHORUS 2.4 mg/dl (2.5-4.9)
[2017-04-26] MEDS: DEXTROSE 5%-0.45% NACL 1,000 ML IV SCH ×2 (09:03→15:40)
[2017-04-26] MEDS: CEFEPIME 1GM/50 ML (PMX) 50 ML IVPB SCH ×2 (09:03→21:33)
[2017-04-26] MEDS: LEVETIRACETAM 500 MG (PMX) 100 ML IVPB SCH ×2 (10:12→21:33)
--- NOTE | 2017-04-26 11:50 | PN ---
Date/Time of Note Date/Time of Note DATE: 04/26/17 TIME: 11:47 Assessment/Plan VTE Prophylaxis VTE Prophylaxis Intervention: contraindicated VTE Contraindication Reason: bleeding Lines/Catheters IV Catheter Type (from Nrs): Peripheral IV Urinary Cath still in place: Yes Reason Cath still needed: urinary retention Assessment/Plan Chief Complaint/Hosp Course S: Patient h still on PPI drip. Presently getting blood transfusion for low hemoglobin. Still somewhat agitated at times. O: VS (see below) PE: Constitutional: opens eyes, non-verbal Head: atraumatic, normocephalic Eyes: EOMI, PERRL ENMT: less dry mucous membranes Respiratory: less diminished breath sounds Cardiovascular: regular rate and rhythm, No edema, No murmurs/extra sounds, No systolic murmur Gastrointestinal: bowel sounds, non-tender, soft, No distended, No rebound or guarding Musculoskeletal: clubbing right foot Extremities: normal pulses Skin: No diaphoresis, No ecchymosis Assessment/Plan: 72-year-old [facility] with: 1. Sepsis secondary to UTI and pneumonia - Patient remains afebrile. Lima cultures final results pending - For now continue IV Azactam, Vancomycin, and Levaquin - ID on board and recommendations appreciated. - Pulmonology on board and recommendations appreciated - Continue to monitor 2. Elevated troponins - NSTEMI versus demand ischemia vs sepsis. With the bleeding that occurred through G-tube 3 days ago, Lovenox has been held. -Conservative treatment for now, follow cardiology recommendations -Continue to monitor heart rate 3. Acute on chronic resp failure- vent dependent, s/p trach - Continue current management - Pulm on [id number] their recommendations 4. Seizure episode -occurred in ER, currently on Keppra. -Follow-up results of EEG 5. Metabolic acidosis -resolved now -Monitor 6. hyponatremia- resolved - continue monitoring 7. GI bleed: Again patient had EGD with esophageal, antral, duodenal ulcers found. Nonbleeding. On PPI drip. Hemoglobin lower today 6.9 -Continue PPI drip, again, getting PRBC transfusion, continue to hold Lovenox, follow GI recommendations Problems: Exam/Review of Systems Vital Signs Vitals Vital Signs Date Time Temp Pulse Resp B/P Pulse Ox O2 Delivery O2 Flow Rate FiO2 04/26/17 11:34 98.0 72 19 94/50 97 04/26/17 11:10 30 04/25/17 18:00 Mechanical Ventilator 04/22/17 19:43 Intake and Output 04/25/17 04/25/17 04/26/17 15:00 23:00 07:00 Intake Total 770 ml 30 ml Output Total 305 ml 130 ml Balance 465 ml -100 ml Results Result Diagram: 04/26/17 0723 04/25/17 0458 Results 24 hrs Laboratory Tests Test 04/25/17 12:01 04/25/17 18:36 04/26/17 00:47 04/26/17 07:23 Hemoglobin 7.5 L 7.8 L 6.9 *L 6.9 *L Hematocrit 22.5 L 23.1 L 20.9 L 20.4 L Phosphorus Level 2.4 L Magnesium Level 2.1 Medications Medications Current Medications Vancomycin HCl 1.25 gm/Sodium Chloride 250 ml @ 83.333 mls/ hr Q24H IVPB Last administered on 04/25/17 11:58; Admin Dose 83.333 MLS/HR; Start 04/23/17 at 12:00 Levetiracetam (Keppra 500 Mg/ 100ml (Pmx)) 100 ml @ 400 mls/hr Q12 IVPB Last administered on 04/26/17 10:12; Admin Dose 400 MLS/HR; Start 04/23/17 at 10: 00 Enoxaparin Sodium 65 mg 65 mg Q12 SC ; Start 04/23/17 at 21:00; Status Future Hold Cefepime HCl (Maxipime 1gm/50 ml (Pmx)) 50 ml @ 100 mls/hr Q12 IVPB Last administered on 04/26/17 09:03; Admin Dose 100 MLS/HR; Start 04/23/17 at 13: 30 Aspirin 81 mg 81 mg DAILY NGT Last administered on 04/23/17 18:09; Admin Dose 81 MG; Start 04/23/17 at 18:00; Status Future Hold Pantoprazole 80 mg/Sodium Chloride 100 ml @ 10 mls/hr Q10H IV Last administered on 04/26/17 01:50; Admin Dose 10 MLS/HR; Start 04/23/17 at 21:00 Dextrose/Sodium Chloride (D5-1/2ns) 1,000 ml @ 75 mls/hr [id number] IV Last administered on 04/26/17 09:03; Admin Dose 75 MLS/HR; Start 04/23/17 at 21:00 Ondansetron HCl (Zofran Inj) 4 mg Q6H PRN IV NAUSEA AND/OR VOMITING; Start at 09:30 Lorazepam 0.5 mg 0.5 mg Q6H PRN IV AGITATION Last administered on 04/25/17 22 :50; Admin Dose 0.5 MG; Start 04/25/17 at 10:00 Potassium Phosphate/Sodium Chloride (K Phos (Meq)/NS) 259.0909 ml @ 64.773 m... ONCE ONCE IVPB ; Start 04/26/17 at 13:00; Stop 04/26/17 at 16:59 MARCO ROSAS Apr 26, 2017 11:50
--- NOTE | 2017-04-26 12:11 | CONS ---
Date/Time of Note Date/Time of Note DATE: 04/26/17 TIME: 12:09 Assessment/Plan Assessment/Plan Additional Assessment/Plan Ventilator setting; AC of 14, tidal volume 500, PEEP of 5, 30% FiO2. Assessment and recommendations; 1. Patient admitted with pneumonia currently on appropriate antibiotic regimen. 2. Chronic respiratory failure which is ventilator dependent. 3. Advanced dementia. 4. Anemia. Continue current supportive care. Monitor H&H. Prognosis appears poor. Consultation Date/Type/Reason Admit Date/Time Apr 22, 2017 at 05:39 Type of Consultation: Pulmonary 24 HR Interval Summary Free Text/Dictation Patient's condition is stable. Remains awake but unresponsive to any commands owing to advanced encephalopathy. Patient however has remained hemodynamically stable. General exam; elderly woman, on ventilator via tracheostomy, awake but unresponsive, currently in no distress. Exam/Review of Systems Vital Signs Vitals Vital Signs Date Time Temp Pulse Resp B/P Pulse Ox O2 Delivery O2 Flow Rate FiO2 04/26/17 12:03 30 04/26/17 11:34 98.0 72 19 94/50 97 04/25/17 18:00 Mechanical Ventilator 04/22/17 19:43 Intake and Output 04/25/17 04/25/17 04/26/17 15:00 23:00 07:00 Intake Total 770 ml 30 ml Output Total 305 ml 130 ml Balance 465 ml -100 ml Exam HEENT exam; supple neck, no JVD. No lymphadenopathy. Midline trachea. No thyromegaly. Tracheostomy in place. Chest exam; diminished breath sounds bilaterally. No added sounds. S1-S2 audible, no murmurs. Regular rhythm. Abdomen exam; soft, G-tube in place. No organomegaly. Bowel sounds audible. Extremity exam; no edema. 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 Results Result Diagram: 04/26/17 0723 04/25/17 0458 Results 24 hrs Laboratory Tests Test 04/25/17 18:36 04/26/17 00:47 04/26/17 07:23 Hemoglobin 7.8 L 6.9 *L 6.9 *L Hematocrit 23.1 L 20.9 L 20.4 L Phosphorus Level 2.4 L Magnesium Level 2.1 Medications Medications Current Medications Vancomycin HCl 1.25 gm/Sodium Chloride 250 ml @ 83.333 mls/ hr Q24H IVPB Last administered on 04/25/17 11:58; Admin Dose 83.333 MLS/HR; Start 04/23/17 at 12:00 Levetiracetam (Keppra 500 Mg/ 100ml (Pmx)) 100 ml @ 400 mls/hr Q12 IVPB Last administered on 04/26/17 10:12; Admin Dose 400 MLS/HR; Start 04/23/17 at 10: 00 Enoxaparin Sodium 65 mg 65 mg Q12 SC ; Start 04/23/17 at 21:00; Status Future Hold Cefepime HCl (Maxipime 1gm/50 ml (Pmx)) 50 ml @ 100 mls/hr Q12 IVPB Last administered on 04/26/17 09:03; Admin Dose 100 MLS/HR; Start 04/23/17 at 13: 30 Aspirin 81 mg 81 mg DAILY NGT Last administered on 04/23/17 18:09; Admin Dose 81 MG; Start 04/23/17 at 18:00; Status Future Hold Pantoprazole 80 mg/Sodium Chloride 100 ml @ 10 mls/hr Q10H IV Last administered on 04/26/17 01:50; Admin Dose 10 MLS/HR; Start 04/23/17 at 21:00 Dextrose/Sodium Chloride (D5-1/2ns) 1,000 ml @ 75 mls/hr [id number] IV Last administered on 04/26/17 09:03; Admin Dose 75 MLS/HR; Start 04/23/17 at 21:00 Ondansetron HCl (Zofran Inj) 4 mg Q6H PRN IV NAUSEA AND/OR VOMITING; Start at 09:30 Lorazepam 0.5 mg 0.5 mg Q6H PRN IV AGITATION Last administered on 04/25/17 22 :50; Admin Dose 0.5 MG; Start 04/25/17 at 10:00 Potassium Phosphate/Sodium Chloride (K Phos (Meq)/NS) 259.0909 ml @ 64.773 m... ONCE ONCE IVPB ; Start 04/26/17 at 13:00; Stop 04/26/17 at 16:59 CRISELDA EDWARD Apr 26, 2017 12:11
[2017-04-26] MEDS ORDERED: POTASSIUM PHOSPHATE 40 MEQ in SOD CHLORIDE 0.9% 250 ML IVPB ONE (13:00)
--- NOTE | 2017-04-26 13:12 | CONS ---
Date/Time of Note Date/Time of Note DATE: 04/26/17 TIME: 13:11 Assessment/Plan Assessment/Plan Additional Assessment/Plan Severe sepsis Cardiomyopathy with ejection fraction 30% Likely GI bleed Acute blood loss anemia Myocardial infarction, likely type II Respiratory failure Preserved ejection fraction DNR -Patient with evidence of elevated troponin concerning for myocardial infarction , likely type II. Patient was put on Lovenox and aspirin and with coffee- ground drainage from PEG tube, thus it was stopped. Patient status post EGD with evidence of ulcer and no active bleeding. Would continue to hold antiplatelet and anticoagulant. Echocardiogram demonstrated depressed ejection fraction. Continue statin therapy if no contraindication. No beta-henrik or ANNELISE inhibitor given borderline blood pressure. Given patient with myocardial infarction and severe anemia, agree with blood transfusion. Consultation Date/Type/Reason Admit Date/Time Apr 22, 2017 at 05:39 Initial Consult Date 04/24/17 Type of Consultation: cv 24 HR Interval Summary Free Text/Dictation Patient seen and examined, no new cardiac issues as per nursing staff Exam/Review of Systems Vital Signs Vitals Vital Signs Date Time Temp Pulse Resp B/P Pulse Ox O2 Delivery O2 Flow Rate FiO2 04/26/17 12:13 76 04/26/17 12:03 30 04/26/17 11:34 98.0 19 94/50 97 04/25/17 18:00 Mechanical Ventilator 04/22/17 19:43 Intake and Output 04/25/17 04/25/17 04/26/17 15:00 23:00 07:00 Intake Total 770 ml 30 ml Output Total 305 ml 130 ml Balance 465 ml -100 ml Exam Following commands, no apparent distress Constitutional: alert Head: normocephalic Neck: other (Tracheostomy) Respiratory: other (Coarse breath sounds bilaterally, no wheezing) Cardiovascular: other (S1-S2 heard), regular rate and rhythm Gastrointestinal: bowel sounds, non-tender, soft Extremities: edema Results Result Diagram: 04/26/17 0723 04/25/17 0458 Results 24 hrs Laboratory Tests Test 04/25/17 18:36 04/26/17 00:47 04/26/17 07:23 Hemoglobin 7.8 L 6.9 *L 6.9 *L Hematocrit 23.1 L 20.9 L 20.4 L Phosphorus Level 2.4 L Magnesium Level 2.1 Medications Medications Current Medications Vancomycin HCl 1.25 gm/Sodium Chloride 250 ml @ 83.333 mls/ hr Q24H IVPB Last administered on 04/25/17 11:58; Admin Dose 83.333 MLS/HR; Start 04/23/17 at 12:00 Levetiracetam (Keppra 500 Mg/ 100ml (Pmx)) 100 ml @ 400 mls/hr Q12 IVPB Last administered on 04/26/17 10:12; Admin Dose 400 MLS/HR; Start 04/23/17 at 10: 00 Enoxaparin Sodium 65 mg 65 mg Q12 SC ; Start 04/23/17 at 21:00; Status Future Hold Cefepime HCl (Maxipime 1gm/50 ml (Pmx)) 50 ml @ 100 mls/hr Q12 IVPB Last administered on 04/26/17 09:03; Admin Dose 100 MLS/HR; Start 04/23/17 at 13: 30 Aspirin 81 mg 81 mg DAILY NGT Last administered on 04/23/17 18:09; Admin Dose 81 MG; Start 04/23/17 at 18:00; Status Future Hold Pantoprazole 80 mg/Sodium Chloride 100 ml @ 10 mls/hr Q10H IV Last administered on 04/26/17 12:37; Admin Dose 10 MLS/HR; Start 04/23/17 at 21:00 Dextrose/Sodium Chloride (D5-1/2ns) 1,000 ml @ 75 mls/hr [id number] IV Last administered on 04/26/17 09:03; Admin Dose 75 MLS/HR; Start 04/23/17 at 21:00 Ondansetron HCl (Zofran Inj) 4 mg Q6H PRN IV NAUSEA AND/OR VOMITING; Start at 09:30 Lorazepam 0.5 mg 0.5 mg Q6H PRN IV AGITATION Last administered on 04/25/17 22 :50; Admin Dose 0.5 MG; Start 04/25/17 at 10:00 Potassium Phosphate/Sodium Chloride (K Phos (Meq)/NS) 259.0909 ml @ 64.773 m... ONCE ONCE IVPB ; Start 04/26/17 at 13:00; Stop 04/26/17 at 16:59 Roberto Carlos Rodriguez DO Apr 26, 2017 13:12
[2017-04-26] MEDS ORDERED: POTASSIUM CHLORIDE 20 MEQ POWDER FOR ORAL SOLN JT ONE (13:30)
--- NOTE | 2017-04-26 15:14 | CONS ---
Date/Time of Note Date/Time of Note DATE: 04/26/17 TIME: 15:13 Assessment/Plan Assessment/Plan Chief Complaint/Hosp Course SUBJECTIVE: No acute changes. The patient is lying comfortably in bed. Getting bld tx, no fevers MICROBIOLOGY: Blood cultures remain negative. Urine culture grew strep. INDWELLINGS: Trach, PEG, Johnson, and peripheral IV. ALL: PCN, Ampicillin ANTIMICROBIALS: The patient is on: 1. Vancomycin. 2. Cefepime. PHYSICAL EXAMINATION: GENERAL: Chronically ill-appearing, elderly woman who is in no distress. HEENT: Head atraumatic, normocephalic. Sclerae anicteric. Buccal mucosa dry. NECK: Supple. CHEST: Rise symmetrical. Breath sounds diminished to bases. HEART: S1, S2. ABDOMEN: Soft, bowel sounds present. EXTREMITIES: Without cyanosis. ASSESSMENT: 1. Sepsis, status post shock. 2. Healthcare-associated pneumonia. 3. Bilateral mastoiditis per CT of the brain. 4. Streptococcal urinary tract infection. 5. Anemia, status post EGD that revealed 2 distal esophageal ulcers. PLAN: Patient remains stable. Continue present care, antibiotics, bld tx prn. Follow recommendations of specialists. DW staff Problems: Consultation Date/Type/Reason Admit Date/Time Apr 22, 2017 at 05:39 Initial Consult Date 04/24/17 Type of Consultation: id Exam/Review of Systems Vital Signs Vitals Vital Signs Date Time Temp Pulse Resp B/P Pulse Ox O2 Delivery O2 Flow Rate FiO2 04/26/17 13:15 70 18 97 30 04/26/17 11:34 98.0 94/50 04/25/17 18:00 Mechanical Ventilator 04/22/17 19:43 Intake and Output 04/25/17 04/25/17 04/26/17 14:59 22:59 06:59 Intake Total 770 ml 40 ml Output Total 320 ml 165 ml Balance 450 ml -125 ml Results Result Diagram: 04/26/17 0723 04/25/17 0458 Results 24 hrs Laboratory Tests Test 04/25/17 18:36 04/26/17 00:47 04/26/17 07:23 Hemoglobin 7.8 L 6.9 *L 6.9 *L Hematocrit 23.1 L 20.9 L 20.4 L Phosphorus Level 2.4 L Magnesium Level 2.1 Medications Medications Current Medications Vancomycin HCl 1.25 gm/Sodium Chloride 250 ml @ 83.333 mls/ hr Q24H IVPB Last administered on 04/25/17 11:58; Admin Dose 83.333 MLS/HR; Start 04/23/17 at 12:00 Levetiracetam (Keppra 500 Mg/ 100ml (Pmx)) 100 ml @ 400 mls/hr Q12 IVPB Last administered on 04/26/17 10:12; Admin Dose 400 MLS/HR; Start 04/23/17 at 10: 00 Enoxaparin Sodium 65 mg 65 mg Q12 SC ; Start 04/23/17 at 21:00; Status Future Hold Cefepime HCl (Maxipime 1gm/50 ml (Pmx)) 50 ml @ 100 mls/hr Q12 IVPB Last administered on 04/26/17 09:03; Admin Dose 100 MLS/HR; Start 04/23/17 at 13: 30 Aspirin 81 mg 81 mg DAILY NGT Last administered on 04/23/17 18:09; Admin Dose 81 MG; Start 04/23/17 at 18:00; Status Future Hold Pantoprazole 80 mg/Sodium Chloride 100 ml @ 10 mls/hr Q10H IV Last administered on 04/26/17 12:37; Admin Dose 10 MLS/HR; Start 04/23/17 at 21:00 Dextrose/Sodium Chloride (D5-1/2ns) 1,000 ml @ 75 mls/hr [id number] IV Last administered on 04/26/17 09:03; Admin Dose 75 MLS/HR; Start 04/23/17 at 21:00 Ondansetron HCl (Zofran Inj) 4 mg Q6H PRN IV NAUSEA AND/OR VOMITING; Start at 09:30 Lorazepam 0.5 mg 0.5 mg Q6H PRN IV AGITATION Last administered on 04/25/17 22 :50; Admin Dose 0.5 MG; Start 04/25/17 at 10:00 Potassium Phosphate/Sodium Chloride (K Phos (Meq)/NS) 259.0909 ml @ 64.773 m... ONCE ONCE IVPB ; Start 04/26/17 at 13:00; Stop 04/26/17 at 16:59 Atorvastatin Calcium (Lipitor) 40 mg HS GTB ; Start 04/26/17 at 21:00 JERONIMO CHINO NP Apr 26, 2017 15:14
[2017-04-26 15:27] LABS: HEMATOCRIT 22.5 % (37.0-47.0); HEMOGLOBIN 7.4 g/dl (12.0-16.0)
[2017-04-26] MEDS: VANCOMYCIN 1.25 GM in SOD CHLORIDE 0.9% 250 ML IVPB SCH (16:23)
--- NOTE | 2017-04-26 18:25 | PN ---
Date/Time of Note Date/Time of Note DATE: 04/26/17 TIME: 17:26 Assessment/Plan VTE Prophylaxis VTE Prophylaxis Intervention: SCD's Lines/Catheters IV Catheter Type (from Nrs): Peripheral IV Urinary Cath still in place: Yes Reason Cath still needed: urinary retention (Her urine output) Assessment/Plan Chief Complaint/Hosp Course Assessment: Upper GI bleed/Anemia EGD 04/24/17 Impression: Two distal esophageal ulcers, 8-10mm GT in place 1 cm antral , no stigmata of bleeding 4 duodenal ulcers no stigmata NSTEMI vs Demand Ischemia Left bundle branch block-sinus tachycardia UTI PNA Ventilator dependent respiratory failure Dysphagia with PEG Recent seizure History of CVA Plan: Blood transfusion today Start G tube feeding at 30 ml/hr CBC Q12 Continue Protonix Monitor h/h transfuse as needed Patient seen in collaboration with DR. Dove Subjective: The patient appears stable s/p EGD day 2, the G-tube site is clear of discharge , No drainage out of G tube. Will start G-tube feeding. Tomorrow will discontinue Protonix drip and start twice daily dosing. Course reviewed with nursing staff Patient interviewed and examined All labs, imaging and other results reviewed PHYSICAL EXAMINATION: GENERAL: Well developed, well nourished, noncommunicative, trached and vent dependent in no acute distress SKIN: No lesions, no stigmata chronic liver disease, no evidence of bleeding diathesis. LYMPHATIC: No palpable lymphadenopathy. HEAD: Normocephalic, atraumatic, no tenderness. EYES: Pupils equal reactive to light and accommodation, full extraocular movements, sclera clear, non-icteric, no discharge. EARS/NOSE AND THROAT: Ears normal, nose normal, oropharynx normal, oral membranes well hydrated without lesions. NECK: Supple, no masses, thyroid normal, JVP within normal limits, carotids normal without bruits. CHEST: Inspection within normal limits. CARDIOVASCULAR: Heart: Regular rate and rhythm, no murmurs, gallops or rubs. Peripheral pulses present within normal limits, no cyanosis, clubbing or edemas. No pulsatile abdominal mass RESPIRATORY: Lungs clear to auscultation and percussion, no wheezing, no rubs GASTROINTESTINAL AND LIVER: Abdomen: Soft, non tenderness, non-distended, no hernias, no masses, no organomegaly, no ascites, no guarding, no rebound tenderness, normoactive bowel sounds. G-tube dressed with gauze, the site is clear. Rectal: Deferred. GENITOURINARY: Female genitalia within normal limits. Johnson catheter in place EXTREMITIES: No cyanosis, clubbing or edema. Right ankle bone deformity Problems: Exam/Review of Systems Vital Signs Vitals Vital Signs Date Time Temp Pulse Resp B/P Pulse Ox O2 Delivery O2 Flow Rate FiO2 04/26/17 16:14 69 04/26/17 15:26 98.4 19 123/71 99 04/26/17 15:20 30 04/25/17 18:00 Mechanical Ventilator 04/22/17 19:43 Intake and Output 04/25/17 04/25/17 04/26/17 15:00 23:00 07:00 Intake Total 770 ml 30 ml Output Total 305 ml 130 ml Balance 465 ml -100 ml Results Result Diagram: 04/26/17 1511 04/25/17 0458 Results 24 hrs Laboratory Tests Test 04/25/17 18:36 04/26/17 00:47 04/26/17 07:23 04/26/17 15:11 Hemoglobin 7.8 L 6.9 *L 6.9 *L 7.4 L Hematocrit 23.1 L 20.9 L 20.4 L 22.5 L Phosphorus Level 2.4 L Magnesium Level 2.1 Medications Medications Current Medications Levetiracetam (Keppra 500 Mg/ 100ml (Pmx)) 100 ml @ 400 mls/hr Q12 IVPB Last administered on 04/26/17 10:12; Admin Dose 400 MLS/HR; Start 04/23/17 at 10: 00 Enoxaparin Sodium 65 mg 65 mg Q12 SC ; Start 04/23/17 at 21:00; Status Future Hold Cefepime HCl (Maxipime 1gm/50 ml (Pmx)) 50 ml @ 100 mls/hr Q12 IVPB Last administered on 04/26/17 09:03; Admin Dose 100 MLS/HR; Start 04/23/17 at 13: 30 Aspirin 81 mg 81 mg DAILY NGT Last administered on 04/23/17 18:09; Admin Dose 81 MG; Start 04/23/17 at 18:00; Status Future Hold Pantoprazole 80 mg/Sodium Chloride 100 ml @ 10 mls/hr Q10H IV Last administered on 04/26/17 12:37; Admin Dose 10 MLS/HR; Start 04/23/17 at 21:00 Dextrose/Sodium Chloride (D5-1/2ns) 1,000 ml @ 75 mls/hr [id number] IV Last administered on 04/26/17 09:03; Admin Dose 75 MLS/HR; Start 04/23/17 at 21:00 Ondansetron HCl (Zofran Inj) 4 mg Q6H PRN IV NAUSEA AND/OR VOMITING; Start at 09:30 Lorazepam (Ativan) 0.5 mg Q6H PRN IV AGITATION Last administered on 04/25/17 22:50; Admin Dose 0.5 MG; Start 04/25/17 at 10:00 Atorvastatin Calcium 40 mg 40 mg HS GTB ; Start 04/26/17 at 21:00 Vancomycin HCl/ Sodium Chloride (Vancocin/NS) 250 ml @ 83.333 mls/ hr Q24H IVPB ; Start 04/27/17 at 16:00 Miscellaneous Information (*Rx Drug Level Order Reminder*) 1 ONCE ONCE XX ; Start 04/27/17 at 15:00; Stop 04/27/17 at 15:01 Copies To: CC: LEIF DOVE MD, ANASTASIA NP Apr 26, 2017 17:36
[2017-04-26] MEDS ORDERED: ATORVASTATIN 40 MG TAB GTB SCH (21:00)
[2017-04-26] MEDS: LORAZEPAM 2 MG INJ IV PRN (21:30)
[2017-04-27] VITALS (17 sets, daily range): BP systolic 92–102; BP diastolic 54–57; PULSE 50–62; RESP 14–20
[2017-04-27] MEDS: DEXTROSE 5%-0.45% NACL 1,000 ML IV SCH (05:00)
[2017-04-27 08:32] LABS: BASOPHILS % 0.3 % (0.0-2.0); EOSINOPHILS # 0.3 10^3/ul (0.0-0.5); EOSINOPHILS % 2.4 % (0.0-7.0); HEMATOCRIT 26.4 % (37.0-47.0); HEMOGLOBIN 9.1 g/dl (12.0-16.0); LYMPHOCYTES # 2.7 10^3/ul (0.8-2.9); LYMPHOCYTES % 25.2 % (15.0-51.0); MEAN CORPUSCULAR HEMOGLOBIN 30.1 pg (29.0-33.0); MEAN CORPUSCULAR HGB CONC 34.5 g/dl (32.0-37.0); MEAN CORPUSCULAR VOLUME 87.4 fl (82.0-101.0); MEAN PLATELET VOLUME 10.7 fl (7.4-10.4); MONOCYTES % 9.6 % (0.0-11.0); NEUTROPHIL # 6.8 10^3/ul (1.6-7.5); NEUTROPHILS % 62.1 % (39.0-77.0); PLATELET COUNT 187 10^3/UL (140-415); RED BLOOD COUNT 3.02 10^6/ul (4.20-5.40); RED CELL DISTRIBUTION WIDTH 14.7 % (11.5-14.5); WHITE BLOOD COUNT 10.9 10^3/ul (4.8-10.8)
[2017-04-27 09:02] LABS: CREATININE 0.63 mg/dl (0.44-1.00); POTASSIUM 3.6 mmol/L (3.5-5.1)
[2017-04-27] MEDS: PANTOPRAZOLE IV 80 MG in SOD CHLORIDE 0.9% 100 ML IV SCH (09:23)
[2017-04-27] MEDS: LEVETIRACETAM 500 MG (PMX) 100 ML IVPB SCH (09:23)
[2017-04-27] MEDS: CEFEPIME 1GM/50 ML (PMX) 50 ML IVPB SCH (09:24)
--- NOTE | 2017-04-27 12:25 | CONS ---
Date/Time of Note Date/Time of Note DATE: 04/27/17 TIME: 12:22 Assessment/Plan Assessment/Plan Additional Assessment/Plan Ventilator setting; AC of 14, tidal volume 500, PEEP of 5, 30% FiO2. Assessment and recommendations; 1. Patient admitted with bilateral pneumonia with history of chronic ventilator dependent respiratory failure. 2. Advanced encephalopathy. 3. Stable seizure disorder. 4. Anemia and thrombocytopenia. Continue current treatment. Obtain follow-up chest x-ray. Consultation Date/Type/Reason Admit Date/Time Apr 22, 2017 at 05:39 Type of Consultation: Pulmonary 24 HR Interval Summary Free Text/Dictation Patient's condition remains stable. Remains awake but unresponsive due to advanced encephalopathy. Patient has remained hemodynamically stable. General exam; elderly woman, awake, currently in no distress. Exam/Review of Systems Vital Signs Vitals Vital Signs Date Time Temp Pulse Resp B/P Pulse Ox O2 Delivery O2 Flow Rate FiO2 04/27/17 11:06 97.5 61 20 99/55 100 04/27/17 07:30 30 04/25/17 18:00 Mechanical Ventilator Intake and Output 04/26/17 04/26/17 04/27/17 15:00 23:00 07:00 Intake Total 200 ml 609.0909 ml 500 ml Output Total 700 ml 1200 ml Balance 200 ml -90.9091 ml -700 ml Exam HEENT exam; supple neck, no JVD. No lymphadenopathy. Midline trachea. No thyromegaly. Tracheostomy in place. Chest exam; diminished but clear breath sounds. S1-S2 audible, no murmurs. Regular rhythm. Abdomen exam; soft, nondistended. G-tube in place. Bowel sounds audible. Extremity exam; no edema. 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 Results Result Diagram: 04/27/17 0755 04/27/17 0755 Results 24 hrs Laboratory Tests Test 04/26/17 15:11 04/27/17 07:55 Hemoglobin 7.4 L 9.1 #L Hematocrit 22.5 L 26.4 L White Blood Count 10.9 H Red Blood Count 3.02 L Mean Corpuscular Volume 87.4 Mean Corpuscular Hemoglobin 30.1 Mean Corpuscular Hemoglobin Concent 34.5 Red Cell Distribution Width 14.7 H Platelet Count 187 Mean Platelet Volume 10.7 H Neutrophils % 62.1 Lymphocytes % 25.2 Monocytes % 9.6 Eosinophils % 2.4 Basophils % 0.3 Nucleated Red Blood Cells % 0.0 Neutrophils # 6.8 Lymphocytes # 2.7 Monocytes # 1.0 H Eosinophils # 0.3 Basophils # 0.0 Nucleated Red Blood Cells # 0.0 Sodium Level 143 Potassium Level 3.6 Chloride Level 116 H Carbon Dioxide Level 20 L Anion Gap 11 Blood Urea Nitrogen 19 Creatinine 0.63 Glucose Level 122 Calcium Level 8.0 L Medications Medications Current Medications Levetiracetam (Keppra 500 Mg/ 100ml (Pmx)) 100 ml @ 400 mls/hr Q12 IVPB Last administered on 04/27/17 09:23; Admin Dose 400 MLS/HR; Start 04/23/17 at 10: 00 Enoxaparin Sodium 65 mg 65 mg Q12 SC ; Start 04/23/17 at 21:00; Status Future Hold Cefepime HCl (Maxipime 1gm/50 ml (Pmx)) 50 ml @ 100 mls/hr Q12 IVPB Last administered on 04/27/17 09:24; Admin Dose 100 MLS/HR; Start 04/23/17 at 13: 30 Aspirin 81 mg 81 mg DAILY NGT Last administered on 04/23/17 18:09; Admin Dose 81 MG; Start 04/23/17 at 18:00; Status Future Hold Pantoprazole 80 mg/Sodium Chloride 100 ml @ 10 mls/hr Q10H IV Last administered on 04/27/17 09:23; Admin Dose 10 MLS/HR; Start 04/23/17 at 21:00 Dextrose/Sodium Chloride (D5-1/2ns) 1,000 ml @ 75 mls/hr [id number] IV Last administered on 04/26/17 09:03; Admin Dose 75 MLS/HR; Start 04/23/17 at 21:00 Ondansetron HCl (Zofran Inj) 4 mg Q6H PRN IV NAUSEA AND/OR VOMITING; Start at 09:30 Lorazepam (Ativan) 0.5 mg Q6H PRN IV AGITATION Last administered on 04/26/17 21:30; Admin Dose 0.5 MG; Start 04/25/17 at 10:00 Atorvastatin Calcium 40 mg 40 mg HS GTB Last administered on 12/22/17at 21:29; Admin Dose 40 MG; Start 04/26/17 at 21:00 Vancomycin HCl/ Sodium Chloride (Vancocin/NS) 250 ml @ 83.333 mls/ hr Q24H IVPB ; Start 04/27/17 at 16:00 Miscellaneous Information (*Rx Drug Level Order Reminder*) 1 ONCE ONCE XX ; Start 04/27/17 at 15:00; Stop 04/27/17 at 15:01 CRISELDA EDWARD Apr 27, 2017 12:25
--- NOTE | 2017-04-27 13:29 | PN ---
Date/Time of Note Date/Time of Note DATE: 04/27/17 TIME: 13:22 Assessment/Plan VTE Prophylaxis VTE Prophylaxis Intervention: SCD's Lines/Catheters IV Catheter Type (from Nrsg): Peripheral IV Urinary Cath still in place: Yes Reason Cath still needed: other (indicate) (monitor output) Assessment/Plan Chief Complaint/Hosp Course Assessment: Upper GI bleed/Anemia EGD 04/24/17 Impression: Two distal esophageal ulcers, 8-10mm GT in place 1 cm antral , no stigmata of bleeding 4 duodenal ulcers no stigmata NSTEMI vs Demand Ischemia Left bundle branch block-sinus tachycardia UTI PNA Ventilator dependent respiratory failure Dysphagia with PEG Recent seizure History of CVA Plan: Continue TF Continue Protonix Monitor h/h transfuse as needed Patient seen in collaboration with DR. Dove Subjective: Course reviewed with nursing staff Patient interviewed and examined All labs, imaging and other results reviewed The patient appears stable H/H currently stable, will continue to monitor TF at 30ml/hr tolerating well. PHYSICAL EXAMINATION: GENERAL: Well developed, well nourished, noncommunicative, trached and vent dependent in no acute distress SKIN: No lesions, no stigmata chronic liver disease, no evidence of bleeding diathesis. LYMPHATIC: No palpable lymphadenopathy. HEAD: Normocephalic, atraumatic, no tenderness. EYES: Pupils equal reactive to light and accommodation, full extraocular movements, sclera clear, non-icteric, no discharge. EARS/NOSE AND THROAT: Ears normal, nose normal, oropharynx normal, oral membranes well hydrated without lesions. NECK: Supple, no masses, thyroid normal, JVP within normal limits, carotids normal without bruits. CHEST: Inspection within normal limits. CARDIOVASCULAR: Heart: Regular rate and rhythm, no murmurs, gallops or rubs. Peripheral pulses present within normal limits, no cyanosis, clubbing or edemas. No pulsatile abdominal mass RESPIRATORY: Lungs clear to auscultation and percussion, no wheezing, no rubs GASTROINTESTINAL AND LIVER: Abdomen: Soft, non tenderness, non-distended, no hernias, no masses, no organomegaly, no ascites, no guarding, no rebound tenderness, normoactive bowel sounds. G-tube dressed with gauze, the site is clear. Rectal: Deferred. GENITOURINARY: Female genitalia within normal limits. Johnson catheter in place EXTREMITIES: No cyanosis, clubbing or edema. Right ankle bone deformity Problems: Problems: Exam/Review of Systems Vital Signs Vitals Vital Signs Date Time Temp Pulse Resp B/P Pulse Ox O2 Delivery O2 Flow Rate FiO2 04/27/17 12:33 68 18 98 30 04/27/17 11:06 97.5 99/55 04/25/17 18:00 Mechanical Ventilator Intake and Output 04/26/17 04/26/17 04/27/17 15:00 23:00 07:00 Intake Total 200 ml 609.0909 ml 500 ml Output Total 700 ml 1200 ml Balance 200 ml -90.9091 ml -700 ml Results Result Diagram: 04/27/17 0755 04/27/17 0755 Results 24 hrs Laboratory Tests Test 04/26/17 15:11 04/27/17 07:55 Hemoglobin 7.4 L 9.1 #L Hematocrit 22.5 L 26.4 L White Blood Count 10.9 H Red Blood Count 3.02 L Mean Corpuscular Volume 87.4 Mean Corpuscular Hemoglobin 30.1 Mean Corpuscular Hemoglobin Concent 34.5 Red Cell Distribution Width 14.7 H Platelet Count 187 Mean Platelet Volume 10.7 H Neutrophils % 62.1 Lymphocytes % 25.2 Monocytes % 9.6 Eosinophils % 2.4 Basophils % 0.3 Nucleated Red Blood Cells % 0.0 Neutrophils # 6.8 Lymphocytes # 2.7 Monocytes # 1.0 H Eosinophils # 0.3 Basophils # 0.0 Nucleated Red Blood Cells # 0.0 Sodium Level 143 Potassium Level 3.6 Chloride Level 116 H Carbon Dioxide Level 20 L Anion Gap 11 Blood Urea Nitrogen 19 Creatinine 0.63 Glucose Level 122 Calcium Level 8.0 L Medications Medications Current Medications Levetiracetam (Keppra 500 Mg/ 100ml (Pmx)) 100 ml @ 400 mls/hr Q12 IVPB Last administered on 04/27/17 09:23; Admin Dose 400 MLS/HR; Start 04/23/17 at 10: 00 Enoxaparin Sodium 65 mg 65 mg Q12 SC ; Start 04/23/17 at 21:00; Status Future Hold Cefepime HCl (Maxipime 1gm/50 ml (Pmx)) 50 ml @ 100 mls/hr Q12 IVPB Last administered on 04/27/17 09:24; Admin Dose 100 MLS/HR; Start 04/23/17 at 13: 30 Aspirin 81 mg 81 mg DAILY NGT Last administered on 04/23/17 18:09; Admin Dose 81 MG; Start 04/23/17 at 18:00; Status Future Hold Pantoprazole 80 mg/Sodium Chloride 100 ml @ 10 mls/hr Q10H IV Last administered on 04/27/17 09:23; Admin Dose 10 MLS/HR; Start 04/23/17 at 21:00 Dextrose/Sodium Chloride (D5-1/2ns) 1,000 ml @ 75 mls/hr [id number] IV Last administered on 04/26/17 09:03; Admin Dose 75 MLS/HR; Start 04/23/17 at 21:00 Ondansetron HCl (Zofran Inj) 4 mg Q6H PRN IV NAUSEA AND/OR VOMITING; Start at 09:30 Lorazepam (Ativan) 0.5 mg Q6H PRN IV AGITATION Last administered on 04/26/17 21:30; Admin Dose 0.5 MG; Start 04/25/17 at 10:00 Atorvastatin Calcium 40 mg 40 mg HS GTB Last administered on 04/26/17 21:29; Admin Dose 40 MG; Start 04/26/17 at 21:00 Vancomycin HCl/ Sodium Chloride (Vancocin/NS) 250 ml @ 83.333 mls/ hr Q24H IVPB ; Start 04/27/17 at 16:00 Miscellaneous Information (*Rx Drug Level Order Reminder*) 1 ONCE ONCE XX ; Start 04/27/17 at 15:00; Stop 04/27/17 at 15:01 ASHISH LERNER Apr 27, 2017 13:29
--- NOTE | 2017-04-27 14:43 | PN ---
Date/Time of Note Date/Time of Note DATE: 04/27/17 TIME: 14:41 Assessment/Plan VTE Prophylaxis VTE Prophylaxis Intervention: contraindicated VTE Contraindication Reason: bleeding Lines/Catheters IV Catheter Type (from Nrs): Peripheral IV Urinary Cath still in place: Yes Reason Cath still needed: urinary retention Assessment/Plan Chief Complaint/Hosp Course S: Patient received a blood transfusion yesterday. Presently off PPI drip. No acute events overnight. O: VS (see below) PE: Constitutional: opens eyes, non-verbal Head: atraumatic, normocephalic Eyes: EOMI, PERRL ENMT: less dry mucous membranes Respiratory: less diminished breath sounds Cardiovascular: regular rate and rhythm, No edema, No murmurs/extra sounds, No systolic murmur Gastrointestinal: bowel sounds, non-tender, soft, No distended, No rebound or guarding Musculoskeletal: clubbing right foot Extremities: normal pulses Skin: No diaphoresis, No ecchymosis Assessment/Plan: 72-year-old female sent from the group home with: 1. Sepsis secondary to UTI and pneumonia - Patient remains afebrile. Lima cultures final results pending - For now continue IV Azactam, Vancomycin, and Levaquin - ID on board and recommendations appreciated. - Pulmonology on board and recommendations appreciated - Continue to monitor 2. Elevated troponins - NSTEMI versus demand ischemia vs sepsis. With the bleeding that occurred through G-tube 4 days ago, Lovenox has been held. -Conservative treatment for now, follow cardiology recommendations -Continue to monitor heart rate 3. Acute on chronic resp failure- vent dependent, s/p trach - Continue current management - Pulm on [id number] their recommendations 4. Seizure episode -occurred in ER, currently on Keppra. -Follow-up results of EEG 5. Metabolic acidosis -resolved now -Monitor 6. hyponatremia- resolved - continue monitoring 7. GI bleed: Again patient had EGD with esophageal, antral, duodenal ulcers found. Nonbleeding recently. Off of PPI drip now. Status post PRBC transfusion yesterday. -Continue to hold Lovenox, follow GI recommendations Problems: Exam/Review of Systems Vital Signs Vitals Vital Signs Date Time Temp Pulse Resp B/P Pulse Ox O2 Delivery O2 Flow Rate FiO2 04/27/17 12:33 68 18 98 30 04/27/17 11:06 97.5 99/55 04/25/17 18:00 Mechanical Ventilator Intake and Output 04/26/17 04/26/17 04/27/17 15:00 23:00 07:00 Intake Total 200 ml 609.0909 ml 500 ml Output Total 700 ml 1200 ml Balance 200 ml -90.9091 ml -700 ml Results Result Diagram: 04/27/17 0755 04/27/17 0755 Results 24 hrs Laboratory Tests Test 04/26/17 15:11 04/27/17 07:55 Hemoglobin 7.4 L 9.1 #L Hematocrit 22.5 L 26.4 L White Blood Count 10.9 H Red Blood Count 3.02 L Mean Corpuscular Volume 87.4 Mean Corpuscular Hemoglobin 30.1 Mean Corpuscular Hemoglobin Concent 34.5 Red Cell Distribution Width 14.7 H Platelet Count 187 Mean Platelet Volume 10.7 H Neutrophils % 62.1 Lymphocytes % 25.2 Monocytes % 9.6 Eosinophils % 2.4 Basophils % 0.3 Nucleated Red Blood Cells % 0.0 Neutrophils # 6.8 Lymphocytes # 2.7 Monocytes # 1.0 H Eosinophils # 0.3 Basophils # 0.0 Nucleated Red Blood Cells # 0.0 Sodium Level 143 Potassium Level 3.6 Chloride Level 116 H Carbon Dioxide Level 20 L Anion Gap 11 Blood Urea Nitrogen 19 Creatinine 0.63 Glucose Level 122 Calcium Level 8.0 L Medications Medications Current Medications Levetiracetam (Keppra 500 Mg/ 100ml (Pmx)) 100 ml @ 400 mls/hr Q12 IVPB Last administered on 04/27/17 09:23; Admin Dose 400 MLS/HR; Start 04/23/17 at 10: 00 Enoxaparin Sodium 65 mg 65 mg Q12 SC ; Start 04/23/17 at 21:00; Status Future Hold Cefepime HCl (Maxipime 1gm/50 ml (Pmx)) 50 ml @ 100 mls/hr Q12 IVPB Last administered on 04/27/17 09:24; Admin Dose 100 MLS/HR; Start 04/23/17 at 13: 30 Aspirin 81 mg 81 mg DAILY NGT Last administered on 04/23/17 18:09; Admin Dose 81 MG; Start 04/23/17 at 18:00; Status Future Hold Dextrose/Sodium Chloride (D5-1/2ns) 1,000 ml @ 75 mls/hr [id number] IV Last administered on 04/26/17 09:03; Admin Dose 75 MLS/HR; Start 04/23/17 at 21:00 Ondansetron HCl (Zofran Inj) 4 mg Q6H PRN IV NAUSEA AND/OR VOMITING; Start at 09:30 Lorazepam (Ativan) 0.5 mg Q6H PRN IV AGITATION Last administered on 04/26/17 21:30; Admin Dose 0.5 MG; Start 04/25/17 at 10:00 Atorvastatin Calcium 40 mg 40 mg HS GTB Last administered on 04/26/17 21:29; Admin Dose 40 MG; Start 04/26/17 at 21:00 Vancomycin HCl/ Sodium Chloride (Vancocin/NS) 250 ml @ 83.333 mls/ hr Q24H IVPB ; Start 04/27/17 at 16:00 Miscellaneous Information (*Rx Drug Level Order Reminder*) 1 ONCE ONCE XX ; Start 04/27/17 at 15:00; Stop 04/27/17 at 15:01 Lansoprazole (Prevacid) 30 mg BID@06,18 GTB ; Start 04/27/17 at 18:00 MARCO ROSAS Apr 27, 2017 14:43
--- NOTE | 2017-04-27 15:13 | PDOCDIS ---
Discharge Instructions CONDITION Patient Condition: Stable MARCO ROSAS Apr 27, 2017 15:13
--- NOTE | 2017-04-27 15:22 | DS ---
Date/Time of Note Date/Time of Note DATE: 04/27/17 TIME: 15:14 Discharge Summary Admission/Discharge Info Admit Date/Time Apr 22, 2017 at 05:39 Discharge Date/Time Discharge Diagnosis 1. Sepsis secondary to UTI and pneumonia - Patient remains afebrile. [place]ima cultures final results pending - For now continue IV Azactam, Vancomycin, and Levaquin 1. Sepsis secondary to UTI and pneumonia - Patient remains afebrile. Lima cultures final results pending - For now continue IV Azactam, Vancomycin, and Levaquin - ID on board and recommendations appreciated. - Pulmonology on board and recommendations appreciated - Continue to monitor 2. Elevated troponins - NSTEMI versus demand ischemia vs sepsis. With the bleeding that occurred through G-tube 4 days ago, Lovenox has been held. 3. Acute on chronic resp failure- vent dependent, s/p trach - Continue current management - Pulm on coord-uzeolb-og their recommendations 4. Seizure episode -occurred in ER, currently on Keppra. -Follow-up results of EEG 5. Metabolic acidosis -resolved now -Monitor 6. hyponatremia- resolved - continue monitoring 7. GI bleed: Again patient had EGD with esophageal, antral, duodenal ulcers found. Nonbleeding recently. Off of PPI drip now. Status post PRBC transfusion yesterday. -Continue to hold Lovenox, follow GI recommendations Patient Condition: Stable Procedures EGD 04/24/17 Impression: Two distal esophageal ulcers, 8-10mm GT in place 1 cm antral , no stigmata of bleeding 4 duodenal ulcers no stigmata Hospital Course 72-year-old female who was [facility] because of alteration in her mental status. Said to have had a seizure episode after which she became unresponsive. The patient is chronically ventilated via tracheostomy, but apparently from reports she is usually alert and oriented and follows commands. No hx of prior seizures. Per EMS patient was completely unresponsive when they arrived and had a blood sugar of 225. ABG in ER showed metabolic acidosis. She is also tachycardic. Per emergency room report, there was also some concern for possible seizure episode. CXR and urinalysis in ER is suggestive of infection. 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 So patient was initially admitted to intensive care unit, seen by multiple specialists during this hospital stay including palliative care team, cardiology, GI, pulmonary, and infectious disease teams. Patient was found with sepsis, secondary to urinary tract infection and pneumonia, she was placed on appropriate antibiotics to treat these, and antibiotics were adjusted based on sensitivities per ID recommendations. Patient also had evidence of elevated troponin concerning for myocardial infarction, likely type II., initially was placed on Lovenox but this was held secondary to bleeding from the PEG tube site. Patient had EGD performed with esophageal, antral, and duodenal ulcers found, placed initially on PPI drip and this was switched over to p.o. PPI on by the time of discharge. She also required PRBC transfusion after found with low hemoglobin levels and hemoglobin remained stable by the time of discharge after this blood transfusion was given. Over the course of her hospital stay her sepsis symptoms are resolving, she is back at her baseline status, she was made DNR after meeting with the palliative care team and discussion with the family about this. Patient's white blood cell count sepsis overall improved, and patient will be discharged back [facility] in in improved condition. See printed medical reconciliation sheet for full list of discharge medications. S: Patient received a blood transfusion yesterday. Presently off PPI drip. No acute events overnight. O: VS (see below) PE: Constitutional: opens eyes, non-verbal Head: atraumatic, normocephalic Eyes: EOMI, PERRL ENMT: less dry mucous membranes Respiratory: less diminished breath sounds Cardiovascular: regular rate and rhythm, No edema, No murmurs/extra sounds, No systolic murmur Gastrointestinal: bowel sounds, non-tender, soft, No distended, No rebound or guarding Musculoskeletal: clubbing right foot Extremities: normal pulses Skin: No diaphoresis, No ecchymosis Assessment/Plan: 72-year-old female sent from the care home with: Home Meds Reported Medications Ascorbic Acid (Vitamin C) 500 Mg Tab, 500 MG GTB BID, TAB 04/22/17 Cran/Vitc/Mannose/Inulin/Brom (Uti-Stat Liquid) 3,875 Mg/30 Ml Liquid, 3875 MG GTB BID 04/22/17 Acetaminophen* (Acetaminophen*) 650 Mg Tablet, 650 MG GTB BID Y for PAIN MANAGMENT, #30 TAB 04/22/17 Acetaminophen* (Acetaminophen*) 500 MG Extra Strength Tablet, 1000 MG GTB Q4 Y for MODERATE PAIN LEVEL 4-6, TAB 04/22/17 Acetaminophen* (Acetaminophen*) 650 Mg Tablet, 650 MG GTB TRACH CHANGE Y for PAIN AND OR ELEVATED TEMP, #30 TAB GIVE 30 MIN PRIOR TO CHANGE 04/22/17 Acetaminophen* (Acetaminophen*) 650 Mg Tablet, 650 MG GTB Q4 Y for MILD PAIN LEVEL 1-3, #30 TAB 04/22/17 Magnesium Hydroxide* (Milk Of Magnesia*) 400 Mg/5 Ml Oral.susp, 30 ML GTB DAILY Y for CONSTIPATION, ML 04/22/17 Magnesium Oxide* (Mag-Oxide*) 400 Mg Tablet, 400 MG GTB DAILY, TAB 04/22/17 Ibuprofen* (Motrin*) 400 Mg Tab, 400 MG GTB Q6H Y for PAIN LEVEL 7-9, TAB 04/22/17 Sodium Phosphate,[place]-Dibasic (Enema Ready To Use) 133 Ml Enema, 133 ML RC PRN Y for CONSTIPATION, ENEMA 04/22/17 Ferrous Sulfate (Ferrous Sulfate) 220 Mg/5 Ml Solution, 330 MG GTB BID 04/22/17 Famotidine* (Famotidine*) 20 Mg Tablet, 20 MG GTB DAILY, #30 TAB 04/22/17 Bisacodyl* (Bisacodyl*) 10 Mg Supp, 10 MG MO DAILY, SUPP 04/22/17 Docusate Sodium* (Colace*) 100 Mg Capsule, 100 MG GTB DAILY, #30 CAP 04/22/17 Chlorhexidine Gluconate (Peridex) 473 Ml Mouthwash, 15 ML MM Q12, BOTTLE 04/22/17 Atorvastatin* (Atorvastatin*) 40 Mg Tablet, 40 MG GTB QHS, #30 TAB 04/22/17 Aspirin (Low Dose Aspirin) 81 Mg Tablet.dr, 81 MG GTB DAILY, #30 TAB 04/22/17 Ipratropium-Albuterol (Ipratropium-Albuterol) 0.5-3 Mg/3 Ml Ampul.neb, 3 ML INHALATION Q3H Y for WHEEZING AND SOB, #30 VIAL 04/22/17 Acidophilus/Pectin, [place] (ACIDOPHILUS-PECTIN CAPTAB) 1 Each Tablet, 1 EACH G- TUBE DAILY, TAB 04/22/17 Primary Care Provider Malik Youssef MD Time spent on discharge: > 30 minutes Pending Labs Laboratory Tests Test 04/27/17 07:55 White Blood Count 10.910^3/ul (4.8-10.8) Red Blood Count 3.0210^6/ul (4.20-5.40) Hemoglobin 9.1g/dl (12.0-16.0) Hematocrit 26.4% (37.0-47.0) Mean Corpuscular Volume 87.4fl (82.0-101.0) Mean Corpuscular Hemoglobin 30.1pg (29.0-33.0) Mean Corpuscular Hemoglobin Concent 34.5g/dl (32.0-37.0) Red Cell Distribution Width 14.7% (11.5-14.5) Platelet Count 92827^3/UL (140-415) Mean Platelet Volume 10.7fl (7.4-10.4) Neutrophils % 62.1% (39.0-77.0) Lymphocytes % 25.2% (15.0-51.0) Monocytes % 9.6% (0.0-11.0) Eosinophils % 2.4% (0.0-7.0) Basophils % 0.3% (0.0-2.0) Nucleated Red Blood Cells % 0.0/100WBC (0.0-0.0) Neutrophils # 6.810^3/ul (1.6-7.5) Lymphocytes # 2.710^3/ul (0.8-2.9) Monocytes # 1.010^3/ul (0.3-0.9) Eosinophils # 0.310^3/ul (0.0-0.5) Basophils # 0.010^3/ul (0.0-0.1) Nucleated Red Blood Cells # 0.010^3/ul (0.0-0.0) Sodium Level 143mmol/L (135-144) Potassium Level 3.6mmol/L (3.5-5.1) Chloride Level 116mmol/L (97-110) Carbon Dioxide Level 20mmol/L (21-31) Anion Gap 11 (8-16) Blood Urea Nitrogen 19mg/dl (7-20) Creatinine 0.63mg/dl (0.44-1.00) Glucose Level 122mg/dl (70-220) Calcium Level 8.0mg/dl (8.4-10.2) MARCO ROSAS Apr 27, 2017 15:22
[2017-04-27] MEDS ORDERED: VANCOMYCIN 1.25 GM in SOD CHLORIDE 0.9% 250 ML IVPB SCH (16:00)
--- NOTE | 2017-04-27 17:21 | CONS ---
Date/Time of Note Date/Time of Note DATE: 04/27/17 TIME: 17:17 Consultation Date/Type/Reason Admit Date/Time Apr 22, 2017 at 05:39 Initial Consult Date SUBJECTIVE: 72 y/o female being treated for sepsis, S/P septic Shock, PNA, and UTI. The patient is awake, alert, and lying comfortably in bed. No fevers. VS: 92/54 P:56 R:20 SO2:100% T: 98.0 LABS: Reviewed. WBC- 10.9 BMP-stable. MICROBIOLOGY: Blood cultures remain negative. Urine culture grew strep. INDWELLINGS: Trach, PEG, Johnson, and peripheral IV. ALL: PCN, Ampicillin ANTIMICROBIALS: The patient is on: 1. Vancomycin. 2. Cefepime. PHYSICAL EXAMINATION: GENERAL: Chronically ill-appearing, elderly woman who is in no distress. HEENT: Head atraumatic, normocephalic. Sclerae anicteric. Buccal mucosa dry. NECK: Supple. CHEST: Rise symmetrical. Breath sounds diminished to bases. HEART: S1, S2. ABDOMEN: Soft, bowel sounds present. EXTREMITIES: Without cyanosis. ASSESSMENT: 1. Sepsis, status post shock. 2. Healthcare-associated pneumonia. 3. Bilateral mastoiditis per CT of the brain. 4. Streptococcal urinary tract infection. 5. Anemia, status post EGD that revealed 2 distal esophageal ulcers. PLAN: Patient remains stable. Continue present antibiotics. Follow recommendations of specialists. Type of Consultation: ID Exam/Review of Systems Vital Signs Vitals Vital Signs Date Time Temp Pulse Resp B/P Pulse Ox O2 Delivery O2 Flow Rate FiO2 04/27/17 15:26 98.0 56 20 92/54 100 04/27/17 12:33 30 04/25/17 18:00 Mechanical Ventilator Intake and Output 04/26/17 04/26/17 04/27/17 15:00 23:00 07:00 Intake Total 200 ml 609.0909 ml 500 ml Output Total 700 ml 1200 ml Balance 200 ml -90.9091 ml -700 ml Results Result Diagram: 04/27/17 0755 04/27/17 0755 Results 24 hrs Laboratory Tests Test 04/27/17 07:55 04/27/17 15:02 White Blood Count 10.9 H Red Blood Count 3.02 L Hemoglobin 9.1 #L Hematocrit 26.4 L Mean Corpuscular Volume 87.4 Mean Corpuscular Hemoglobin 30.1 Mean Corpuscular Hemoglobin Concent 34.5 Red Cell Distribution Width 14.7 H Platelet Count 187 Mean Platelet Volume 10.7 H Neutrophils % 62.1 Lymphocytes % 25.2 Monocytes % 9.6 Eosinophils % 2.4 Basophils % 0.3 Nucleated Red Blood Cells % 0.0 Neutrophils # 6.8 Lymphocytes # 2.7 Monocytes # 1.0 H Eosinophils # 0.3 Basophils # 0.0 Nucleated Red Blood Cells # 0.0 Sodium Level 143 Potassium Level 3.6 Chloride Level 116 H Carbon Dioxide Level 20 L Anion Gap 11 Blood Urea Nitrogen 19 Creatinine 0.63 Glucose Level 122 Calcium Level 8.0 L Vancomycin Level Trough 15.5 Medications Medications Current Medications Levetiracetam (Keppra 500 Mg/ 100ml (Pmx)) 100 ml @ 400 mls/hr Q12 IVPB Last administered on 04/27/17 09:23; Admin Dose 400 MLS/HR; Start 04/23/17 at 10: 00 Enoxaparin Sodium 65 mg 65 mg Q12 SC ; Start 04/23/17 at 21:00; Status Future Hold Cefepime HCl (Maxipime 1gm/50 ml (Pmx)) 50 ml @ 100 mls/hr Q12 IVPB Last administered on 04/27/17 09:24; Admin Dose 100 MLS/HR; Start 04/23/17 at 13: 30 Aspirin 81 mg 81 mg DAILY NGT Last administered on 04/23/17 18:09; Admin Dose 81 MG; Start 04/23/17 at 18:00; Status Future Hold Dextrose/Sodium Chloride (D5-1/2ns) 1,000 ml @ 75 mls/hr [id number] IV Last administered on 04/26/17 09:03; Admin Dose 75 MLS/HR; Start 04/23/17 at 21:00 Ondansetron HCl (Zofran Inj) 4 mg Q6H PRN IV NAUSEA AND/OR VOMITING; Start at 09:30 Lorazepam (Ativan) 0.5 mg Q6H PRN IV AGITATION Last administered on 04/26/17 21:30; Admin Dose 0.5 MG; Start 04/25/17 at 10:00 Atorvastatin Calcium 40 mg 40 mg HS GTB Last administered on 04/26/17 21:29; Admin Dose 40 MG; Start 04/26/17 at 21:00 Vancomycin HCl/ Sodium Chloride (Vancocin/NS) 250 ml @ 83.333 mls/ hr Q24H IVPB Last administered on 04/27/17 16:00; Admin Dose 83.333 MLS/HR; Start at 16:00 Lansoprazole (Prevacid) 30 mg BID@06,18 GTB ; Start 04/27/17 at 18:00 KOBE GLOVER Apr 27, 2017 17:21
--- NOTE | 2017-04-27 17:52 | RADRPT ---
PROCEDURE: XR Chest. CLINICAL INDICATION: Shortness of breath. TECHNIQUE: Single frontal view. COMPARISON: April 22, 2017. FINDINGS: The tracheostomy tube is in satisfactory and unchanged position. Pulmonary edema is slightly improve d. There is mild atelectasis at the lung bases. The lungs are otherwise clear. The heart size is normal. There is calcification in the aorta consistent with atherosclerosis. There is no pleural effusion. There is no pneumothorax. IMPRESSION: 1. Improved pulmonary edema. 2. No other change from April 22, 2017. RPTAT: QQ .Cortez Machado MD, MD Date Time Electronically viewed and signed by .Cortez Machado MD, on 04/27/2017 16:46 .R/
[2017-04-27] MEDS ORDERED: LANSOPRAZOLE 30 MG CAP GTB SCH (18:00)
[2017-04-30 07:18] LABS: HEMOGLOBIN 6.9 g/dl (12.0-16.0)
== END 2017-04-27 17:53 | DRG 871 ==
LOC: E/R 03:55 → ICU 05:39 → TEL 04-25 19:52
PROVIDERS: ADMIT Family Medicine; ATTEND Family Medicine
PROC: 5A1945Z Respiratory Ventilation, 24-96 Consecutive Hours (ICD-10-PCS; principal; 2017-04-22)
PROC: 0DB68ZX Excision of Stomach, Via Natural or Artificial Opening Endoscopic, Diagnostic (ICD-10-PCS; 2017-04-24)
PROC: 30233N1 Transfusion of Nonautologous Red Blood Cells into Peripheral Vein, Percutaneous Approach (ICD-10-PCS; 2017-04-26)
DX: A41.9 Sepsis, unspecified organism (principal); J18.9 Pneumonia, unspecified organism; J96.20 Acute and chronic respiratory failure, unspecified whether with hypoxia or hypercapnia; I21.4 Non-ST elevation (NSTEMI) myocardial infarction; R65.21 Severe sepsis with septic shock; Z99.11 Dependence on respirator [ventilator] status; K25.6 Chronic or unspecified gastric ulcer with both hemorrhage and perforation; E87.2 Acidosis; Z93.0 Tracheostomy status; I21.A1 Myocardial infarction type 2; N39.0 Urinary tract infection, site not specified; K92.2 Gastrointestinal hemorrhage, unspecified; E87.1 Hypo-osmolality and hyponatremia; K22.10 Ulcer of esophagus without bleeding; I42.9 Cardiomyopathy, unspecified; D62 Acute posthemorrhagic anemia; F03.90 Unspecified dementia, unspecified severity, without behavioral disturbance, psychotic disturbance, mood disturbance, and anxiety; G40.909 Epilepsy, unspecified, not intractable, without status epilepticus; I44.7 Left bundle-branch block, unspecified; K26.9 Duodenal ulcer, unspecified as acute or chronic, without hemorrhage or perforation; Z93.1 Gastrostomy status; Z66 Do not resuscitate
CPT/HCPCS: 36430; 36600; 70450; 71010; 80048; 80053; 80061; 80076; 80202; 80306; 80307; 81001; 82550; 82553; 82803; 82962; 83036; 83735; 84100; 84484; 85014; 85018; 85025; 86850; 86900; 86901; 86920; 87040; 87081; 87086; 88305; 93005; 93306; 93970; 94002; 94003; 95819; 96365; 96375; C9113; J0692; J1650; J1953; J1956; J2060; J3370; J3475; J7030; J7042; J7050; P9016

== ENCOUNTER 2017-08-02 | Inpatient (IN) | END 2017-08-05 18:25 | DRG 542 ==

== ENCOUNTER 2017-09-07 21:48 | Inpatient (IN) | END 2017-09-17 14:40 | disposition EXP | DRG 871 ==